=== PATIENT | female | born 1930 | race Caucasian/White ===

== ENCOUNTER 2016-04-17 13:40 | Inpatient (IN) | payer OTHER, MEDICARE ==
[~2016-04-17] VITALS: Ht 160 cm; Wt 63.5 kg
[~2016-04-17 13:40] MED LIST: ACETAMINOPHEN500 M4 PO; BISACODYL10 M1 RC; DONEPEZIL HCL10 M1 PO; ESCITALOPRAM OX20 MG PO; LEVOTHYROXINE75 MCG PO; MILK OF MA400 MG/52 PO; MULTI-DAY VITA1 EACH PO; PRILOSEC OTC20 M1 PO; PROCHLORPERAZIN25 M1 PR; QUETIAPINE FUMA25 M1 PO; TRAZODONE HCL50 M1 PO
--- NOTE | 2016-04-17 13:45 | NUR ---
AG FROM [facility] FOR VOMITING AND ABD PAIN. PT HAS BEEN REFUSING CARE, FOOD, MEDS X1 DAY. UPON ARRIVAL PT C/O GENERALIZED ABDOMINAL PAIN AND NAUSEA. BP 160/100 MANUALLY
--- NOTE | 2016-04-17 13:55 | ED GENERAL ADULT ---
History of Present Illness General Chief Complaint: General Adult Stated Complaint: BIBA FROM SNF FOR N/V,REFUSING MEDS,RESISTING CARE Source: patient, old records, EMS, [facility]10 Exam Limitations: no limitations Vital Signs & Intake/Output Vital Signs & Intake/Output Vital Signs Date Time Temp Pulse Resp B/P Pulse O2 O2 Flow FiO2 Ox Delivery Rate 04/20 0842 98.4 80 20 136/80 94 Room Air 04/19 1642 97.1 80 20 140/80 92 Room Air ED Intake and Output 04/20 0000 04/19 1200 Intake Total 300 Output Total Balance 300 Intake, Oral 300 Number 1 Bowel Movements Allergies Coded Allergies: NO KNOWN ALLERGIES (09/12/15) Reconcile Medications Acetaminophen 500 MG TABLET 2 TAB PO Q12H OA PAIN (Reported) Bisacodyl 10 MG SUPP.RECT 1 SUP RC DAILY PRN CONSTIPATION (Reported) Donepezil HCl 10 MG TABLET 1 TAB PO QPM MEMORY (Reported) Escitalopram Oxalate 20 MG TABLET 1 TAB PO DAILY MENTAL HEALTH (Reported) Levothyroxine Sodium 75 MCG TABLET 1 TAB PO DAILY AC THYROID (Reported) Magnesium Hydroxide (Milk Of Magnesia) 400 MG/5 ML ORAL.SUSP 30 ML PO DAILY PRN CONSTIPATION (Reported) Multivitamin (Multi-Day Vitamins) 1 EACH TABLET 1 TAB PO DAILY SUPPLEMENT ( Reported) Omeprazole Magnesium (Prilosec Otc) 20 MG TABLET.DR 1 TAB PO DAILY GI ( Reported) Quetiapine Fumarate 25 MG TABLET 1 TAB PO 4 TIMES/DAY MENTAL HEALTH (Reported ) Trazodone HCl 50 MG TABLET 75 MG PO QHS INSOMNIA (Reported) Trazodone HCl 50 MG TABLET 0.5 TAB PO BID UNKNOWN (Reported) Triage Nurses Notes Reviewed? yes Onset: Gradual Duration: day(s): (1) Timing: unknown Injury Environment: home Severity: moderate No Modifying Factors: none HPI: Patient is an 85-year-old female presenting to the emergency department with chief complaint of nausea and vomiting that started last night progressively getting worse. She reports she is unable to keep anything down today. She also reports diffuse abdominal pain. Unknown if there are any sick contacts. She does live in a [facility]. Denies any diarrhea. Denies reseeding anything at the ch[facility] help with symptoms. Per EMS she refused care at the ch[facility]. (GABRIEL ROBLEDO,SOL) Past History Travel History Traveled to [place] past 21 day No Medical History Any Pertinent Medical History? 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 No (SOL GARIBAY) Review of Systems Review of Systems Constitutional: Reports: malaise. Comments Review of systems: See HPI, All other systems negative. Constitutional, no chills fever or weight loss HEENT: No visual changes no sore throat no congestion Cardiovascular: No chest pain ,palpitation , orthopnea or ankle swelling Skin, no jaundice no rashes Respiratory: No dyspnea cough sputum or hemoptysis GI: No diarrhea : No dysuria No hematuria Muscle skeletal: no back pain, no neck pain, Neurologic: No numbness no increased confusion Psych: No stress anxiety Immunology: No splenectomy or history of AIDS (SOL GARIBAY) Physical Exam Physical Exam General Appearance: no apparent distress, alert, awake, obese Comments: Well-developed well-nourished person in no acute distress HEENT: Pupils equally round and reactive to light and accommodation. Nose is atraumatic. External auditory canal and Tympanic membranes clear. Pharynx normal. No swelling or edema. Slightly dry oral mucosa. Neck: Supple, no lymphadenopathy Back: Nontender, no CVA tenderness. Cardiovascular: Regular rate and rhythms no murmurs rubs or gallops, normal JVP Respiratory: Chest nontender. No respiratory distress.breath sounds clear to auscultation bilaterally Abdomen: Soft, obese, diffuse tenderness with guarding, nondistended, no appreciable organomegaly. Normal bowel sounds. No ascites. Palpable ventral hernia . Extremity: No edema, no calf tenderness to palpation, normal and equal pulses. Neuro: Alert oriented x3 Skin: No appreciable rash on exposed skin, skin is warm and dry. Psych: Mood and affect is normal, memory and judgment is normal. Core Measures ACS in differential dx? Yes CVA/TIA Diagnosis: No Severe Sepsis Present: No Septic Shock Present: No (SOL GARIBAY) Progress Differential Diagnoses I considered the following diagnoses in my evaluation of the patient: Gastritis , ACS, SBO, pancreatitis, dehydration, electrolyte abnormality, viral syndrome cholecystitis, choledocholithiasis, cholangitis Plan of Care: Orders Procedure Date/time Status Regular Diet 04/20 B Active CBC WITHOUT DIFFERENTIAL 04/20 599 Complete BASIC ELECTROLYTES PLUS BUN&CR 04/20 06 Complete Clear Liquid Diet 04/19 L Complete Current Medications Sig/Alonzo Start time Last Medication Dose Stop Time Status Admin Omeprazole 40 MG DAILY AC 04/20 0700 AC (Prilosec) Amoxicillin/ 500 MG Q12 04/190 AC Clavulanate Potassium (Augmentin) Heparin Sodium 5,000 UNIT Q8 04/17 220 AC (Porcine) Ondansetron HCl 4 MG Q6P PRN 04/17 173 AC (Zofran) Trazodone HCl 50 MG AT BEDTIME NEED.. 04/17 173 AC (Desyrel) Laboratory Tests 04/20/16 0854: Anion Gap 10, Estimated GFR 33 L, BUN/Creatinine Ratio 19.3, CBC w Diff NO MAN DIFF REQ, RBC 3.61 L, MCV 89.3, MCH 29.5, RDW 15.1 H, MPV 8.3, Gran % 77.1 H, Lymphocytes % 15.4 L, Monocytes % 7.2, Eosinophils % 0.1, Basophils % 0.2, Absolute Granulocytes 8.2 H, Absolute Lymphocytes 1.6, Absolute Monocytes 0.8 H, Absolute Eosinophils 0, Absolute Basophils 0, PUBS MCHC 33.0 Diagnostic Imaging: Viewed by Me: CT Scan. Discussed w/RAD: CT Scan. Radiology Impression: PATIENT: BRIEN MATTA PRESENT AGE: 85 PATIENT ACCOUNT NO: [id number] : 31 LOCATION: [facility] ORDERING PHYSICIAN: SOL ROBLEDO SERVICE DATE: 04/17/16 EXAM TYPE: CAT - CT ABD & PELVIS W/O IV CONTRAS EXAMINATION: CT ABDOMEN AND PELVIS WITHOUT CONTRAST CLINICAL INFORMATION: Nausea and vomiting. Abdominal pain. COMPARISON: None. TECHNIQUE: Multidetector volumetric imaging was performed from the superior aspect of the liver through the pubic symphysis. Sagittal and coronal reformatted images were obtained on the technologist's workstation. No oral contrast given. No intravenous contrast administered. DLP: 492.42 mGy-cm FINDINGS: LUNG BASES: The visualized lung bases are unremarkable. Vascular wall calcifications of aorta and coronary arteries. LIVER, GALLBLADDER, AND BILIARY TREE: The liver is normal in size, shape, and attenuation. No focal hepatic lesion or biliary ductal dilatation is present. The gallbladder is distended. There is edema around the gallbladder in the right upper quadrant. This is concerning for an acute cholecystitis. There is a gallstone in the neck of the gallbladder measuring 1.5 cm which is calcified. The extrahepatic CBD at the sharan hepatis is dilated to a diameter of 1.4 cm but tapers to the ampulla with no calcified stone in the bile duct. PANCREAS: Unremarkable. SPLEEN: Unremarkable. ADRENAL GLANDS: Unremarkable. KIDNEYS AND URETERS: In the superior pole of left kidney is a hyperdense 2 cm nodule, Hounsfield units 75. There is a low attenuating cortical cyst at the anterior cortex at the midpole of left kidney measuring 1.6 cm, Hounsfield density measurement of 19. Pedunculated 3 mm hyperdense lesion at the lower pole of left kidney coronal image 82. A 1.7 cm hyperdense cyst in the cortex of the mid lower pole of the right kidney. No renal or ureteral calculus. No hydronephrosis. BLADDER: Unremarkable. ABDOMINAL WALL/GASTROINTESTINAL TRACT: There is a ventral wall hernia. Defect in the abdominal wall musculature to left of the umbilicus. Defect measures about 3 cm transverse and superior inferior. There is nonobstructive large bowel loops from the transverse colon herniated through the defect. No obstruction of the bowel loops and no bowel wall thickening or edema. Moderate volume of stool throughout the colon. There is marked diverticulosis of the sigmoid colon with no evidence of diverticulitis. Scattered diverticula through the remainder of the colon. The appendix is normal. The small bowel loops are normal. LYMPH NODES: Normal. VASCULAR: Fusiform aneurysm of the distal aorta proximal to the bifurcation. Transverse dimension of 3.2 cm. There are vascular wall calcifications of the aorta and of the major branch vessels of the aorta. PELVIC VISCERA: Uterus is absent. No adnexal abnormality. OSSEOUS STRUCTURES: Multilevel degenerative change of the spine with disc height narrowing and endplate spurs and facet joint arthrosis. There is mild depression of the superior endplate of L4, L3, L2 and T11 vertebrae. IMPRESSION: 1. Cholelithiasis. Edema around the gallbladder. Findings suggesting acute cholecystitis. Dilated proximal CBD without calcified stone in the bile ducts. 2. Ventral wall hernia containing nonobstructed loop of transverse colon. 3. Diverticulosis of the sigmoid without diverticulitis. No bowel obstruction. No acute change of the bowel. 4. 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 DICTATED BY: NITISH GARCIA MD DATE/TIME DICTATED: 04/17/161525 FRONT DESK ASSOCIATE:GERSON DATE/TIME TRANSCRIBED:04/17/161525 CONFIDENTIAL, DO NOT COPY WITHOUT APPROPRIATE AUTHORIZATION. <Electronically signed in Other Vendor System> SIGNED BY: NITISH GARCIA MD 04/17/16 6436 CXR Impression: PATIENT: BRIEN MATTA PRESENT AGE: 85 PATIENT ACCOUNT NO: [id number] : 31 LOCATION: [facility] ORDERING PHYSICIAN: SOL ROBLEDO SERVICE DATE: 04/17/16 EXAM TYPE: RAD - XRY- PORTABLE CHEST XRAY EXAMINATION: XR PORTABLE CHEST CLINICAL INFORMATION: Cough, vomiting, question aspiration COMPARISON: 02/23/2016 TECHNIQUE: Portable AP view of the chest was obtained. FINDINGS: The patient is rotated accentuating the cardiomediastinal silhouette. There is patchy opacification in the retrocardiac left lower lobe and blunting of the left costophrenic angle which appears slightly worsened in the interval since the prior study. The right lung appears clear. No pneumothorax. The spine is not ideally assessed. The bones appear demineralized without convincing acute abnormality. IMPRESSION: Patchy retrocardiac left lower lobe opacity with a small left pleural effusion, which appears slightly worsened in the interval since the prior study accounting for differences in technique and position. DICTATED BY: ANGIE BEST MD DATE/TIME DICTATED:04/17/161550 FRONT DESK ASSOCIATE:GERSON DATE/TIME TRANSCRIBED:1550 CONFIDENTIAL, DO NOT COPY WITHOUT APPROPRIATE AUTHORIZATION. < Electronically signed in Other Vendor System> SIGNED BY: ANGIE BEST MD 04/17/161555 Initial ED EKG: SINUS RHYTHM AT 96 BPM, RIGHT BUNDLE BRANCH BLOCK, LEFT VENTRICULAR HYPERTROPHY Prior EKG: unchanged Comments: On arrival patient actively dry heaving. Given IV Zofran, IV fluids. Patient is afebrile arrival. Reports from W 10 show that she's been nauseous and vomiting for the past day with decreased by mouth intake. She does have a large ventral hernia on exam and diffuse tenderness with guarding. We will assess a CT of the abdomen, CBC, CMP. 04/17/2016 4:35:13 PM patient informed of all lab work results and imaging study results. Suggestive of acute cholecystitis. Patient medicated with IV Unasyn as she does have a dilation of the common bile duct in a stone in the bile duct. Spoke with Sean Rhodes MD, he will likely admit the patient for cholecystitis. The surgical PA will come down and evaluate the patient. Patient resting comfortably at this time. No elevation in LFTs or bilirubin. Patient is still afebrile. Prophylactically treating with Unasyn. Discussed with Kristy Bashir MD and she agrees with plan. (SOL GARIBAY) Departure Departure Time of Disposition: 1731 Disposition: STILL A PATIENT Condition: Stable Clinical Impression Primary Impression: Cholecystitis Secondary Impressions: Leukocytosis Qualifiers: Leukocytosis type: unspecified Qualified Code: D72.829 - Elevated white blood cell count, unspecified Referrals: Yumiko DOLAN MD (PCP/Family) Departure Forms: Customer Survey General Discharge Information Admission Note Spoke With: NORTH MUELLER,SEAN Montoya Documentation of Exam: Documentation of any treatments & extenuating circumstances including Concerns Regarding Discharge (functional status, medication knowledge or non-compliance, living conditions, etc.) that warrant an admission rather than observation: Nothing by mouth status, IV hydration, IV pain management, patient may require removal of gallbladder, TREND LABS. (SOL GARIBAY) PA/BREAD OVEN OPERATOR Co-Sign Statement Statement: ED Attending supervision documentation- [X] I saw and evaluated the patient. I have also reviewed all the pertinent lab results and diagnostic results. I agree with the findings and the plan of care as documented in the PA's/BREAD OVEN OPERATOR's documentation. [X] I have reviewed the ED Record and agree with the PA's/BREAD OVEN OPERATOR's documentation. [] Additions or exceptions (if any) to the PAs/BREAD OVEN OPERATOR's note and plan are summarized below: [] (MICAELA MUELLER,KRISTY) Critical Care Note Critical Care Note Critical Care Time: 30-74 min (SOL GARIBAY) Departure Time of Disposition: 1731 Disposition: STILL A PATIENT Condition: Stable Clinical Impression Primary Impression: Cholecystitis Secondary Impressions: Leukocytosis Qualifiers: Leukocytosis type: unspecified Qualified Code: D72.829 - Elevated white blood cell count, unspecified Referrals: Yumiko DOLAN MD (PCP/Family) Departure Forms: Customer Survey General Discharge Information Admission Note Spoke With: NORTH MUELLER,SEAN N. Documentation of Exam: Documentation of any treatments & extenuating circumstances including Concerns Regarding Discharge (functional status, medication knowledge or non-compliance, living conditions, etc.) that warrant an admission rather than observation: Nothing by mouth status, IV hydration, IV pain management, patient may require removal of gallbladder, TREND LABS. Critical Care Note Critical Care Note Critical Care Time: 30-74 min
[2016-04-17 14:18] LABS: ABSOLUTE BASOPHIL COUNT 0.1 /CUMM (0.0-0.2); ABSOLUTE EOSINOPHIL COUNT 0 /CUMM (0.0-0.7); ABSOLUTE GRANULOCYTE CT 16.5 /CUMM (1.4-6.5); ABSOLUTE LYMPH COUNT 1.9 /CUMM (1.2-3.4); ABSOLUTE MONOCYTE COUNT 0.9 /CUMM (0.10-0.60); BASOPHIL % 0.3 % (0.0-2.0); EOSINOPHIL % 0 % (0-5); GRANULOCYTE % 84.9 % (42.2-75.2); HEMATOCRIT 36.6 % (37-47); MEAN CORPUSCULAR HGB 29.1 PG (27.0-31.0); MEAN CORPUSCULAR HGB CONC 32.5 G/DL (33.0-37.0); MEAN CORPUSCULAR VOLUME 89.5 FL (81.0-99.0); MEAN PLATELET VOLUME 8.1 FL (7.4-10.4); PLATELET COUNT 267 /CUMM (130-400); RBC DISTRIBUTION WIDTH 15.9 % (11.5-14.5); RED BLOOD CELL CT 4.09 /CUMM (4.20-5.40); WHITE BLOOD CELL COUNT 19.4 /CUMM (4.8-10.8)
--- NOTE | 2016-04-17 15:20 | NUR ---
PT LEFT AND BACK FROM CAT SCAN
--- NOTE | 2016-04-17 15:35 | NUR ---
PCXR IN PROCESS
--- NOTE | 2016-04-17 15:49 | CT SCAN REPORT ---
EXAMINATION: CT ABDOMEN AND PELVIS WITHOUT CONTRAST CLINICAL INFORMATION: Nausea and vomiting. Abdominal pain. COMPARISON: None. TECHNIQUE: Multidetector volumetric imaging was performed from the superior aspect of the liver through the pubic symphysis. Sagittal and coronal reformatted images were obtained on the technologist's workstation. No oral contrast given. No intravenous contrast administered. DLP: 492.42 mGy-cm FINDINGS: LUNG BASES: The visualized lung bases are unremarkable. Vascular wall calcifications of aorta and coronary arteries. LIVER, GALLBLADDER, AND BILIARY TREE: The liver is normal in size, shape, and attenuation. No focal hepatic lesion or biliary ductal dilatation is present. The gallbladder is distended. There is edema around the gallbladder in the right upper quadrant. This is concerning for an acute cholecystitis. There is a gallstone in the neck of the gallbladder measuring 1.5 cm which is calcified. The extrahepatic CBD at the sharan hepatis is dilated to a diameter of 1.4 cm but tapers to the ampulla with no calcified stone in the bile duct. PANCREAS: Unremarkable. SPLEEN: Unremarkable. ADRENAL GLANDS: Unremarkable. KIDNEYS AND URETERS: In the superior pole of left kidney is a hyperdense 2 cm nodule, Hounsfield units 75. There is a low attenuating cortical cyst at the anterior cortex at the midpole of left kidney measuring 1.6 cm, Hounsfield density measurement of 19. Pedunculated 3 mm hyperdense lesion at the lower pole of left kidney coronal image 82. A 1.7 cm hyperdense cyst in the cortex of the mid lower pole of the right kidney. No renal or ureteral calculus. No hydronephrosis. BLADDER: Unremarkable. ABDOMINAL WALL/GASTROINTESTINAL TRACT: There is a ventral wall hernia. Defect in the abdominal wall musculature to left of the umbilicus. Defect measures about 3 cm transverse and superior inferior. There is nonobstructive large bowel loops from the transverse colon herniated through the defect. No obstruction of the bowel loops and no bowel wall thickening or edema. Moderate volume of stool throughout the colon. There is marked diverticulosis of the sigmoid colon with no evidence of diverticulitis. Scattered diverticula through the remainder of the colon. The appendix is normal. The small bowel loops are normal. LYMPH NODES: Normal. VASCULAR: Fusiform aneurysm of the distal aorta proximal to the bifurcation. Transverse dimension of 3.2 cm. There are vascular wall calcifications of the aorta and of the major branch vessels of the aorta. PELVIC VISCERA: Uterus is absent. No adnexal abnormality. OSSEOUS STRUCTURES: Multilevel degenerative change of the spine with disc height narrowing and endplate spurs and facet joint arthrosis. There is mild depression of the superior endplate of L4, L3, L2 and T11 vertebrae. IMPRESSION: 1. Cholelithiasis. Edema around the gallbladder. Findings suggesting acute cholecystitis. Dilated proximal CBD without calcified stone in the bile ducts. 2. Ventral wall hernia containing nonobstructed loop of transverse colon. 3. Diverticulosis of the sigmoid without diverticulitis. No bowel obstruction. No acute change of the bowel. 4. 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
--- NOTE | 2016-04-17 15:56 | RADIOLOGY REPORT ---
EXAMINATION: XR PORTABLE CHEST CLINICAL INFORMATION: Cough, vomiting, question aspiration COMPARISON: 02/23/2016 TECHNIQUE: Portable AP view of the chest was obtained. FINDINGS: The patient is rotated accentuating the cardiomediastinal silhouette. There is patchy opacification in the retrocardiac left lower lobe and blunting of the left costophrenic angle which appears slightly worsened in the interval since the prior study. The right lung appears clear. No pneumothorax. The spine is not ideally assessed. The bones appear demineralized without convincing acute abnormality. IMPRESSION: Patchy retrocardiac left lower lobe opacity with a small left pleural effusion, which appears slightly worsened in the interval since the prior study accounting for differences in technique and position.
--- NOTE | 2016-04-17 17:40 | Cons- Medical ---
EDITHAVNILAURA 04/17/16 1739: General Information and HPI Consulting Request Date of Consult: 04/17/16 Requested By: Dr. Rhodes Reason for Consult: Management of possible Pneumonia Source of Information: patient, old records History of Present Illness: This is an 85 years old lady with past medical history of hypertension not on height but antihypertensive medications, hypothyroidism, GERD, ventral hernia, AAA, advanced dementia who is a resident of group home facility and presenting with 3 days history of nausea and vomiting, consisting predominantly of recently eaten foods. The patient denies any abdominal pain associated with nausea and vomiting, she denies any fevers or chills. Reported from the group home facility that the patient refused investigation and also care to address her nausea and vomiting. She has been having no bowel movement for the past 3 days initially was found to have hypoactive bowels but today the patient bowel sounds were normal. This patient is none mobile at baseline requiring a wheelchair and a Dottie lift. Hospital course adjusted a few days ago to address her behavioral issues especially refusing care. The patient decision maker for health concern is her sister telephone number [phone]. Patient denies any chest pain, palpitation, shortness of breath, dizziness, blurring of vision or lightheadedness. She denies any dysuria or change in urine frequency. Allergies/Medications Allergies: Coded Allergies: NO KNOWN ALLERGIES (09/12/15) Home Med List: Acetaminophen 500 MG TABLET 2 TAB PO Q12H OA PAIN (Reported) Bisacodyl 10 MG SUPP.RECT 1 SUP RC DAILY PRN CONSTIPATION (Reported) Donepezil HCl 10 MG TABLET 1 TAB PO QPM MEMORY (Reported) Escitalopram Oxalate 20 MG TABLET 1 TAB PO DAILY MENTAL HEALTH (Reported) Levothyroxine Sodium 75 MCG TABLET 1 TAB PO DAILY AC THYROID (Reported) Magnesium Hydroxide (Milk Of Magnesia) 400 MG/5 ML ORAL.SUSP 30 ML PO DAILY PRN CONSTIPATION (Reported) Multivitamin (Multi-Day Vitamins) 1 EACH TABLET 1 TAB PO DAILY SUPPLEMENT ( Reported) Omeprazole Magnesium (Prilosec Otc) 20 MG TABLET.DR 1 TAB PO DAILY GI ( Reported) Quetiapine Fumarate 25 MG TABLET 1 TAB PO 4 TIMES/DAY MENTAL HEALTH (Reported ) Trazodone HCl 50 MG TABLET 75 MG PO QHS INSOMNIA (Reported) Trazodone HCl 50 MG TABLET 0.5 TAB PO BID UNKNOWN (Reported) Current Medications: Current Medications Sig/Alonzo Start time Last Medication Dose Route Stop Time Status Admin Acetaminophen 1,000 MG Q6P PRN 04/17 1730 AC N/A 1 UNIT IV Ampicillin Sodium/ 3,000 MG Q6 04/17 2200 UNVr Sulbactam Sodium IV Sodium Chloride 100 ML Ampicillin Sodium/ 0 .STK-MED ONE 04/17 1627 DC Sulbactam Sodium .ROUTE Ampicillin Sodium/ 3,000 MG ONCE ONE 04/17 1600 DC 04/17 Sulbactam Sodium IV 04/17 1629 1637 Sodium Chloride 100 ML Dextrose/Sodium 1,000 ML Q10H 04/17 1730 AC Chloride IV Escitalopram Oxalate 20 MG DAILY 04/18 1000 UNVr PO Heparin Sodium 5,000 UNIT Q8 04/17 2200 UNVr (Porcine) SC Levothyroxine Sodium 0.075 MG DAILY AC 04/18 0700 UNVr PO Ondansetron HCl 4 MG Q6P PRN 04/17 1730 AC IV Ondansetron HCl 0 .STK-MED ONE 04/17 1401 DC .ROUTE Ondansetron HCl 4 MG ONCE ONE 04/17 1400 DC 04/17 IV 04/17 1401 1402 Pantoprazole Sodium 40 MG DAILY 04/18 1000 AC IV Quetiapine Fumarate 25 MG FOUR TIMES A DAY 04/17 1800 UNVr PO Sodium Chloride 1,000 ML BOLUS ONE 04/17 1400 DC 04/17 IV 04/17 1559 1412 Trazodone HCl 25 MG BID 04/17 2200 UNVr PO Trazodone HCl 50 MG AT BEDTIME NEED.. 04/17 1730 AC PO Review of Systems Review of Systems Constitutional: Denies: chills, fever. EENTM: Denies: blurred vision, double vision. Cardiovascular: Denies: chest pain, palpitations. Respiratory: Denies: cough, short of breath. GI: Reports: constipation, nausea, vomiting. Denies: abdominal pain. 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 Musculoskeletal: Denies: no symptoms. 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 ETOH Use: denies use Illicit Drug Use: denies illicit drug use Functional Ability ADLs Needs Assist: dressing, eating, toileting, bathing. Exam & Diagnostic Data Last 24 Hrs of Vital Signs/I&O Vital Signs Date Time Temp Pulse Resp B/P Pulse O2 O2 Flow FiO2 Ox Delivery Rate 04/17 1846 98.8 92 16 177/85 93 Room Air 04/17 1536 92 16 154/86 93 Room Air 04/17 1410 93 Room Air 04/17 1345 98.7 95 16 160/100 93 Room Air Intake & Output 04/17 1600 04/17 0800 04/17 0000 Intake Total 1000 Output Total 150 Balance 850 Intake, IV 1000 Output, 150 Emesis Patient 180 lb Weight Physical Exam General Appearance: no apparent distress, alert, awake, patient is not oriented to time place or person Head: atraumatic, normal appearance Eyes: Bilateral: normal appearance. Ears, Nose, Throat: dry mucous membranes Neck: normal inspection Respiratory: bronchial breath sounds bilaterally more in the bases Cardiovascular: regular rate/rhythm Peripheral Pulses: 2+ radial (R), 2+ radial (L) Gastrointestinal: normal bowel sounds, soft, non-tender Back: normal inspection Extremities: normal inspection, normal capillary refill, no edema Neurologic/Psych: awake, alert (not oriented to time place orP) Cranial Nerves: normal speech Last 24 Hrs of Labs/Ramon: Laboratory Tests 04/17/16 1702: Lactic Acid Cancelled 04/17/16 1402: Lactic Acid 1.1 04/17/16 1402: Anion Gap 14, Estimated GFR 33 L, BUN/Creatinine Ratio 21.3, Glucose 133 H, Calcium 9.0, Total Bilirubin 0.9, AST 20, ALT 28, Alkaline Phosphatase 111, Total Protein 7.2, Albumin 3.4 L, Globulin 3.8, Albumin/Globulin Ratio 0.9 L, Amylase < 30 L, Lipase 37, CBC w Diff MAN DIFF ORDERED, RBC 4.09 L, MCV 89.5, MCH 29.1, RDW 15.9 H, MPV 8.1, Gran % 84.9 H, Lymphocytes % 10.0 L, Monocytes % 4.8, Eosinophils % 0, Basophils % 0.3, Absolute Granulocytes 16.5 H, Absolute Lymphocytes 1.9, Absolute Monocytes 0.9 H, Absolute Eosinophils 0, Absolute Basophils 0.1, Platelet Estimate ADEQUATE, Anisocytosis 1+, PUBS MCHC 32.5 L 04/17/16 1400: PT 11.9, INR 1.13, APTT 38 H Diagnostic Data EKG Results Normal sinus rhythm, regular, right bundle branch block no ST-T wave changes CXR Results Patchy retrocardiac left lower lobe opacity with small left pleural effusion with slight worsening. Other Results Abdominal pelvis CT: 1. Cholelithiasis. Edema around the gallbladder. Findings suggesting acute cholecystitis. Dilated proximal CBD without calcified stone in the bile ducts. 2. Ventral wall hernia containing nonobstructed loop of transverse colon. 3. Diverticulosis of the sigmoid without diverticulitis. No bowel obstruction. No acute change of the bowel. 4. 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 Assessment/Plan Assessment/Plan This is an 85 years old lady with past medical history of hypertension not on antihypertensive medications, advanced dementia, GERD, hypothyroidism who was brought in from group home facility presenting with nausea and vomiting for the past 3 days. Patient has been refusing care at SNF facility. She was found to have leukocytosis of 19,400 with a left shifted granulocyte about 85%, has increased BUN of 32 and creatinine of 1.5 with GFR of 33 which is secured D stage IIIB, no lactic acidosis with imaging evidence of patchy retrocardiac left lower lobe opacity and CT scan evidence of acute cholecystitis. Problem list Aspiration pneumonia Cholecystitis Advanced dementia Hypothyroidism GERD This patient has right bundle branch block on the EKG but this is unchanged from previous EKG. She has no recorded history of coronary artery disease, no heart failure no history of CVA she is not using insulin and her creatinine is less than 2 from [facility] she has no risk factor and high risk of cardiac event during the surgery is 0.5%. You have a repeat EKG tomorrow morning and from our standpoint can continue with surgery. Post surgical team will be nothing by mouth from midnight but can take medication with sips of water. The patient on normal saline at 75 mL per hr while nothing by mouth. Aspiration pneumonia: The patient has leukocytosis with retrocardiac opacity suggestive of pneumonia. Start the patient on Unasyn 3000 mg every 6, continue to monitor for signs of infection, will need a repeat chest x-ray to assess progression of the opacities. Advanced dementia: Please continue all home medication, this patient has risk of developing delirium due to her advanced dementia and now presenting with acute sickness. The patient is on trazodone 50 mg twice a day and trazodone 75 mg at bedtime, quetiapine fumarate 25 mg 4 times a day Hypothyroidism: Continue with levothyroxine 75 g Depression: Continue with escitalopram 20 mg Problem List: 1. Aspiration pneumonia 2. Leukocytosis 3. Cholecystitis 4. Dementia Copies To: NORTH MUELLER,SEAN Olsen. Consult Acknowledgment - Thank you for your consult request. SACHA MAC 04/18/16 0057: Assessment/Plan Consult Acknowledgment - Thank you for your consult request. Attending MD Review Statement Attending Statement Attending MD Statement: examined this patient, discuss w/resident/PA/WARP TENSION TESTER, agreed w/resident/PA/WARP TENSION TESTER, reviewed EMR data (avail), reviewed images, amended to note Attending Assessment/Plan: CC : Nausea vomiting, refusing treatment in assisted living PMH: Dementia, hypothyroidism, HTN Patient presents with 3 days history of nausea and vomiting, consisting predominantly of recently eaten foods. Patient is not reliable historian as she is pleasantly demented. She denies any abdominal pain, fevers or chills, chest pain, cough but is a is received repeat she. senior living facility reported that the patient refused investigation and also care to address her nausea and vomiting and no bowel movements since 3 days. The patient decision maker for health concern is her sister telephone number [phone]. On investigations in ER, there is suspicion of acute cholecystitis, being admitted to surgical service. We wear asked consult for medical comanagement for suspected pneumonia. Vitals: Afebrile, HR, RR, BP, saturation in acceptable range. On examination pleasantly demented, inappropriate responses, not oriented, follows instructions , refuses examination. CVS: S1-S2 RRR. RS: Clear to auscultate bilaterally, no adventitious sounds. Abdomen soft, nontender bowel sounds decreased. No pedal edema, no focal neurological deficits Labs: WBC 19.4 with neutrophils 84%, hemoglobin 11.9, bicarbonate 21, anion gap 14, BUN 32, creatinine 1.5, glucose 133, lactate 1.1. CXR: Patchy retrocardiac left lower lobe opacity with a small left pleural effusion, which appears slightly worsened in the interval since the prior study accounting for differences in technique and position. CT abdomen and pelvis without IV contrast: Cholelithiasis. Edema around the gallbladder. Findings suggesting acute cholecystitis. Dilated proximal CBD without calcified stone in the bile ducts. Ventral wall hernia containing nonobstructed loop of transverse colon. Diverticulosis of the sigmoid without diverticulitis. No bowel obstruction. No acute change of the bowel. 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 A and P Thanks for involving in care. Patient may have aspirated with recurrent vomitings, chest x-ray shows patchy retrocardiac opacity. Patient is not a reliable historian for chest pain or cough. Has significant leukocytosis but afebrile. - Aspiration pneumonia versus pneumonitis: continue Unasyn for now, repeat chest x-ray in 2 days for developing pneumonia versus resolution of infiltrates, to decide antibiotic course. Nothing by mouth. Swallow evaluation if surgery is not scheduled. - dementia: Patient not oriented pleasantly confused. Watch for delirium, related to hospital stay as well as current sickness. When necessary antipsychotics if required, check EKG for QTc interval - No detailed history is available, EKG shows right bundle branch block difficult to evaluate old Q waves. But overall patient does not appear in heart failure or volume overload, does not have any history of diabetes. Should be low risk for any surgery.
[2016-04-17 17:53] LABS: PT 11.9 SEC (9.4-12.5); PTT 38 SEC (25-37)
--- NOTE | 2016-04-17 17:53 | History & Physical Pre-Op ---
General Information and HPI MD Statement: I have seen and personally examined BRIEN MATTA and documented this H&P. The patient is a 85 year old F who presented with a patient stated chief complaint of [ABDOMINAL PAIN]. Source of Information: patient, old records Exam Limitations: dementia History of Present Illness: This 85 year old resident of [facility] was BIBA due to her nausea/vomiting and refusal to eat prior to coming in. She apparentely had been complaining of abdominal pain, but denies any problem when seen in the ED. "I feel fine". "Let me go home". Denies any symptoms. Doesn't recall reporting abdominal pain or having nausea/vomiting prior to presenting to the ED. When asked who her primary care doctor is, she replied "I don't have one" even though she is well known to . I called her sister for more information/history, who was unavailable by phone. Allergies/Medications Allergies: Coded Allergies: NO KNOWN ALLERGIES (09/12/15) Home Med list Acetaminophen 500 MG TABLET 2 TAB PO Q12H OA PAIN (Reported) Bisacodyl 10 MG SUPP.RECT 1 SUP RC DAILY PRN CONSTIPATION (Reported) Donepezil HCl 10 MG TABLET 1 TAB PO QPM MEMORY (Reported) Escitalopram Oxalate 20 MG TABLET 1 TAB PO DAILY MENTAL HEALTH (Reported) Levothyroxine Sodium 75 MCG TABLET 1 TAB PO DAILY AC THYROID (Reported) Magnesium Hydroxide (Milk Of Magnesia) 400 MG/5 ML ORAL.SUSP 30 ML PO DAILY PRN CONSTIPATION (Reported) Multivitamin (Multi-Day Vitamins) 1 EACH TABLET 1 TAB PO DAILY SUPPLEMENT ( Reported) Omeprazole Magnesium (Prilosec Otc) 20 MG TABLET.DR 1 TAB PO DAILY GI ( Reported) Quetiapine Fumarate 25 MG TABLET 1 TAB PO 4 TIMES/DAY MENTAL HEALTH (Reported ) Trazodone HCl 50 MG TABLET 75 MG PO QHS INSOMNIA (Reported) Trazodone HCl 50 MG TABLET 0.5 TAB PO BID UNKNOWN (Reported) Past History Medical History Neurological: dementia EENT: cataracts Cardiovascular: hypertension Respiratory: NONE Gastrointestinal: GERD, HERNIA INCONTINENCE Hepatic: NONE Renal: INCONTINENCE Musculoskeletal: osteoarthritis Psychiatric: anxiety Endocrine: hypothyroidism Blood Disorders: NONE Cancer(s): NONE 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 Long-Term Facility ETOH Use: denies use Illicit Drug Use: denies illicit drug use Review of Systems Review of Systems: denies Exam & Diagnostic Data Last 24 Hrs of Vital Signs/I&O Vital Signs Date Time Temp Pulse Resp B/P Pulse O2 O2 Flow FiO2 Ox Delivery Rate 04/17 1536 92 16 154/86 93 Room Air 04/17 1410 93 Room Air 04/17 1345 98.7 95 16 160/100 93 Room Air Intake & Output 04/17 1600 04/17 0800 04/17 0000 Intake Total 1000 Output Total 150 Balance 850 Intake, IV 1000 Output, 150 Emesis Patient 180 lb Weight Physical Exam: General - alert. demented. no acute distress. Skin - warm, dry, smooth. no rashes. no jaundice. Lungs - decreased breath sounds b/l, L>R Cardiac - s1s2. reg. Abdomen - nontender. midline incision appreciated. Extremities - warm bilaterally. calves soft and nontender. Last 24 Hrs of Labs/Ramon: Laboratory Tests 04/17/16 1702: Lactic Acid Cancelled 04/17/16 1402: Lactic Acid 1.1 04/17/16 1402: Anion Gap 14, Estimated GFR 33 L, BUN/Creatinine Ratio 21.3, Glucose 133 H, Calcium 9.0, Total Bilirubin 0.9, AST 20, ALT 28, Alkaline Phosphatase 111, Total Protein 7.2, Albumin 3.4 L, Globulin 3.8, Albumin/Globulin Ratio 0.9 L, Amylase < 30 L, Lipase 37, CBC w Diff MAN DIFF ORDERED, RBC 4.09 L, MCV 89.5, MCH 29.1, RDW 15.9 H, MPV 8.1, Gran % 84.9 H, Lymphocytes % 10.0 L, Monocytes % 4.8, Eosinophils % 0, Basophils % 0.3, Absolute Granulocytes 16.5 H, Absolute Lymphocytes 1.9, Absolute Monocytes 0.9 H, Absolute Eosinophils 0, Absolute Basophils 0.1, Platelet Estimate ADEQUATE, Anisocytosis 1+, PUBS MCHC 32.5 L 04/17/16 1400: PT Pending, INR Pending, APTT Pending Microbiology 04/17 1625 BLOOD: Blood Culture - RECD 04/17 161 BLOOD: Blood Culture - RECD Diagnostic Data CXR Results EXAMINATION: XR PORTABLE CHEST CLINICAL INFORMATION: Cough, vomiting, question aspiration COMPARISON: 02/23/2016 TECHNIQUE: Portable AP view of the chest was obtained. FINDINGS: The patient is rotated accentuating the cardiomediastinal silhouette. There is patchy opacification in the retrocardiac left lower lobe and blunting of the left costophrenic angle which appears slightly worsened in the interval since the prior study. The right lung appears clear. No pneumothorax. The spine is not ideally assessed. The bones appear demineralized without convincing acute abnormality. IMPRESSION: Patchy retrocardiac left lower lobe opacity with a small left pleural effusion, which appears slightly worsened in the interval since the prior study accounting for differences in technique and position. DICTATED BY: ANGIE BEST MD DATE/TIME DICTATED:04/17/161550 [employer]:GERSON DATE/TIME TRANSCRIBED:04/17/161550 Other Results EXAMINATION: CT ABDOMEN AND PELVIS WITHOUT CONTRAST CLINICAL INFORMATION: Nausea and vomiting. Abdominal pain. COMPARISON: None. TECHNIQUE: Multidetector volumetric imaging was performed from the superior aspect of the liver through the pubic symphysis. Sagittal and coronal reformatted images were obtained on the technologist's workstation. No oral contrast given. No intravenous contrast administered. DLP: 492.42 mGy-cm FINDINGS: LUNG BASES: The visualized lung bases are unremarkable. Vascular wall calcifications of aorta and coronary arteries. LIVER, GALLBLADDER, AND BILIARY TREE: The liver is normal in size, shape, and attenuation. No focal hepatic lesion or biliary ductal dilatation is present. The gallbladder is distended. There is edema around the gallbladder in the right upper quadrant. This is concerning for an acute cholecystitis. There is a gallstone in the neck of the gallbladder measuring 1.5 cm which is calcified. The extrahepatic CBD at the sharan hepatis is dilated to a diameter of 1.4 cm but tapers to the ampulla with no calcified stone in the bile duct. PANCREAS: Unremarkable. SPLEEN: Unremarkable. ADRENAL GLANDS: Unremarkable. KIDNEYS AND URETERS: In the superior pole of left kidney is a hyperdense 2 cm nodule, Hounsfield units 75. There is a low attenuating cortical cyst at the anterior cortex at the midpole of left kidney measuring 1.6 cm, Hounsfield density measurement of 19. Pedunculated 3 mm hyperdense lesion at the lower pole of left kidney coronal image 82. A 1.7 cm hyperdense cyst in the cortex of the mid lower pole of the right kidney. No renal or ureteral calculus. No hydronephrosis. BLADDER: Unremarkable. ABDOMINAL WALL/GASTROINTESTINAL TRACT: There is a ventral wall hernia. Defect in the abdominal wall musculature to left of the umbilicus. Defect measures about 3 cm transverse and superior inferior. There is nonobstructive large bowel loops from the transverse colon herniated through the defect. No obstruction of the bowel loops and no bowel wall thickening or edema. Moderate volume of stool throughout the colon. There is marked diverticulosis of the sigmoid colon with no evidence of diverticulitis. Scattered diverticula through the remainder of the colon. The appendix is normal. The small bowel loops are normal. LYMPH NODES: Normal. VASCULAR: Fusiform aneurysm of the distal aorta proximal to the bifurcation. Transverse dimension of 3.2 cm. There are vascular wall calcifications of the aorta and of the major branch vessels of the aorta. PELVIC VISCERA: Uterus is absent. No adnexal abnormality. OSSEOUS STRUCTURES: Multilevel degenerative change of the spine with disc height narrowing and endplate spurs and facet joint arthrosis. There is mild depression of the superior endplate of L4, L3, L2 and T11 vertebrae. IMPRESSION: 1. Cholelithiasis. Edema around the gallbladder. Findings suggesting acute cholecystitis. Dilated proximal CBD without calcified stone in the bile ducts. 2. Ventral wall hernia containing nonobstructed loop of transverse colon. 3. Diverticulosis of the sigmoid without diverticulitis. No bowel obstruction. No acute change of the bowel. 4. 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 DICTATED BY: NITISH GARCIA MD DATE/TIME DICTATED:04/17/161525 [employer]:[place] DATE/TIME TRANSCRIBED:04/17/161525 CONFIDENTIAL, DO NOT COPY WITHOUT APPROPRIATE AUTHORIZATION. Assessment/Plan Assessment/Plan: This 85 year old white female with hx dementia, hypothryoidism, gerd, htn, anxiety presents with abdominal pain, nausea/vomiting, and CT scan findings suggesting acute cholecystitis with cxr that shows possible aspiration pneumonia npo / ivf iv unasyn iv tylenol for pain as needed hep sc - dvt ppx home meds ordered aspiration precautions tried to call her sister, who was unavailable consult called to for co-management discussed above with As Ranked By This Provider Problem List: 1. Abdominal pain 2. Aspiration pneumonia
--- NOTE | 2016-04-17 17:54 | Admission Core Measures ---
Admission Lab Results I reviewed the following labs: Laboratory Tests 04/17 04/17 04/17 1702 1402 1402 Chemistry Sodium (137 - 145 mmol/L) 139 Potassium (3.5 - 5.1 mmol/L) 4.4 Chloride (98 - 107 mmol/L) 104 Carbon Dioxide (22 - 30 mmol/L) 21 L Anion Gap (5 - 16) 14 BUN (7 - 17 mg/dL) 32 H Creatinine (0.5 - 1.0 mg/dL) 1.5 H Estimated GFR (>60 ml/min) 33 L BUN/Creatinine Ratio (7 - 25 %) 21.3 Glucose (65 - 99 mg/dL) 133 H Lactic Acid (0.7 - 2.1 mmol/L) Cancelled 1.1 Calcium (8.4 - 10.2 mg/dL) 9.0 Total Bilirubin (0.2 - 1.3 mg/dL) 0.9 AST (14 - 36 U/L) 20 ALT (9 - 52 U/L) 28 Alkaline Phosphatase (<127 U/L) 111 Total Protein (6.3 - 8.2 g/dL) 7.2 Albumin (3.5 - 5.0 g/dL) 3.4 L Globulin (1.9 - 4.2 gm/dL) 3.8 Albumin/Globulin Ratio (1.1 - 2.2 %) 0.9 L Amylase (30 - 110 U/L) < 30 L Lipase (23 - 300 U/L) 37 Hematology CBC w Diff MAN DIFF ORDERED WBC (4.8 - 10.8 /CUMM) 19.4 H RBC (4.20 - 5.40 /CUMM) 4.09 L Hgb (12.0 - 16.0 G/DL) 11.9 L Hct (37 - 47 %) 36.6 L MCV (81.0 - 99.0 FL) 89.5 MCH (27.0 - 31.0 PG) 29.1 RDW (11.5 - 14.5 %) 15.9 H Plt Count (130 - 400 /CUMM) 267 MPV (7.4 - 10.4 FL) 8.1 Gran % (42.2 - 75.2 %) 84.9 H Lymphocytes % (20.5 - 51.1 %) 10.0 L Monocytes % (1.7 - 9.3 %) 4.8 Eosinophils % (0 - 5 %) 0 Basophils % (0.0 - 2.0 %) 0.3 Absolute Granulocytes (1.4 - 6.5 /CUMM) 16.5 H Absolute Lymphocytes (1.2 - 3.4 /CUMM) 1.9 Absolute Monocytes (0.10 - 0.60 /CUMM) 0.9 H Absolute Eosinophils (0.0 - 0.7 /CUMM) 0 Absolute Basophils (0.0 - 0.2 /CUMM) 0.1 Platelet Estimate (ADEQUATE) ADEQUATE Anisocytosis 1+ PUBS MCHC (33.0 - 37.0 G/DL) 32.5 L 04/17 1400 Coagulation PT Pending INR Pending APTT Pending Admission Meds I reviewed the following Meds: Current Medications Sig/Alonzo Start time Last Medication Dose Stop Time Status Admin Acetaminophen 1,000 MG Q6P PRN 04/17 1730 AC (Ofirmev) N/A 1 UNIT (No Carrier) Ampicillin Sodium/ 3,000 MG Q6 04/17 2200 UNVr Sulbactam Sodium (Unasyn) Sodium Chloride 100 ML (Normal Saline 0.9%) Dextrose/Sodium 1,000 ML Q10H 04/17 1730 AC Chloride (D5W-1/2 Normal Saline 1000ML) Escitalopram Oxalate 20 MG DAILY 04/18 1000 UNVr (Lexapro) Heparin Sodium 5,000 UNIT Q8 04/17 2200 UNVr (Porcine) Levothyroxine Sodium 0.075 MG DAILY AC 04/18 0700 UNVr (Synthroid) Ondansetron HCl 4 MG Q6P PRN 04/17 1730 AC (Zofran) Pantoprazole Sodium 40 MG DAILY 04/18 1000 AC (Protonix) Quetiapine Fumarate 25 MG FOUR TIMES A DAY 04/17 1800 UNVr (Seroquel) Trazodone HCl 25 MG BID 04/17 2200 UNVr (Desyrel) Trazodone HCl 50 MG AT BEDTIME NEED.. 04/17 1730 AC (Desyrel) Acute Coronary Syndrome Inclusion Criteria ACS Diagnosis No Inpatient Core Measures LDL Reminder: If No, please order W/I first 24hr of stay Congestive Heart Failure Inclusion Criteria CHF Diagnosis No Cerebrovascular accident Inclusion Criteria CVA/TIA Diagnosis No Inpatient Core Measures Bedside Swallow Eval Reminder: If BSE failed, place ST order Antithrombotic Reminder: Order Antithrombotic Medication by end of day 2 Antithrombotic Reminder: Document Reason Antithrombotic Not ordered by end of day 2 AFIB/Flutter Reminder: If Present, add to problem list AFIB/Flutter Reminder: Order Anticoag Medication for pts with AFIB/Flutter Atherosclerosis Reminder: If Present, add to problem list LDL Reminder: If No, please order W/I first 24hr of stay PT Order Reminder: If No, please order Venous thromboembolism Inpatient Core Measures VTE Risk Factors: Age > 40, Obesity VTE Prophylaxis Ordered Inpt Mech & Pharm No Mech VTE prophylaxis d/t No contraindications No VTE Pharm Prophylaxis d/t No contraindications Inclusion Criteria - Per Current guidelines, there needs to be overlap - treatment for the first 5 days of Warfarin therapy. - Parenteral Anticoagulation (IV or SC) needs to be - given along with Warfarin therapy. VTE Diagnosis No VTE Type NONE VTE Confirmed by (Test) NONE Problem List As ranked by this Provider includes Assessment & Plan 1. Aspiration pneumonia 2. Abdominal pain HOME MEDS Home Med List Acetaminophen 500 MG TABLET 2 TAB PO Q12H OA PAIN (Reported) Bisacodyl 10 MG SUPP.RECT 1 SUP RC DAILY PRN CONSTIPATION (Reported) Donepezil HCl 10 MG TABLET 1 TAB PO QPM MEMORY (Reported) Escitalopram Oxalate 20 MG TABLET 1 TAB PO DAILY MENTAL HEALTH (Reported) Levothyroxine Sodium 75 MCG TABLET 1 TAB PO DAILY AC THYROID (Reported) Magnesium Hydroxide (Milk Of Magnesia) 400 MG/5 ML ORAL.SUSP 30 ML PO DAILY PRN CONSTIPATION (Reported) Multivitamin (Multi-Day Vitamins) 1 EACH TABLET 1 TAB PO DAILY SUPPLEMENT ( Reported) Omeprazole Magnesium (Prilosec Otc) 20 MG TABLET.DR 1 TAB PO DAILY GI ( Reported) Quetiapine Fumarate 25 MG TABLET 1 TAB PO 4 TIMES/DAY MENTAL HEALTH (Reported ) Trazodone HCl 50 MG TABLET 75 MG PO QHS INSOMNIA (Reported) Trazodone HCl 50 MG TABLET 0.5 TAB PO BID UNKNOWN (Reported)
--- NOTE | 2016-04-17 18:11 | NUR ---
HOUSE STAFF AT BEDSIDE TO EVAL PT
--- NOTE | 2016-04-17 18:40 | NUR ---
BED ASSIGNMENT 216-02
--- NOTE | 2016-04-17 18:44 | NUR ---
PT REFUSING IV PLACEMENT AFTER MULTIPLE ATTEMPTS TO DISCUSS NEED. SURGICAL PA PAGED
--- NOTE | 2016-04-17 19:14 | NUR ---
REPORT GIVEN TO WALDO GARCIA
--- NOTE | 2016-04-17 19:42 | NUR ---
THIS RN ATTEMPTED TO OBTAIN FLU SWAB, PT YELLED AND GRABBED THIS RN'S ARM AND SHOVED IT AWAY. PT REFUSING FLU SWAB AT THIS TIME
[2016-04-17 20:29] VITALS: BP 160/89
--- NOTE | 2016-04-17 23:04 | History & Physical Pre-Op ---
General Information and HPI Source of Information: patient, old records Exam Limitations: dementia History of Present Illness: Chief complaint "abdominal pain" History of present illness is quite limited because the patient is demented and refusing any physical exam and denies any abdominal pain and doesn't know why she is here. She was brought from the custodial apparently with a recent history of abdominal pain and vomiting and decreased appetite, details unknown. She is nondiabetic nonsmoker. Surgical consult was called because her gallbladder looks abnormal imaging in the ER. I'm evaluating her in the ER. The chart was reviewed the PFSH and ROS were reviewed and are limited as mentioned. Family history is unobtainable and not documented. Allergies/Medications Allergies: Coded Allergies: NO KNOWN ALLERGIES (09/12/15) Home Med list Acetaminophen 500 MG TABLET 2 TAB PO Q12H OA PAIN (Reported) Augmentin (Augmentin 500-125 Tablet) 500 MG-125 MG TABLET 500 MG PO Q12 ANTIBIOTICS Bisacodyl 10 MG SUPP.RECT 1 SUP RC DAILY PRN CONSTIPATION (Reported) Donepezil HCl 10 MG TABLET 1 TAB PO QPM MEMORY (Reported) Escitalopram Oxalate 20 MG TABLET 1 TAB PO DAILY MENTAL HEALTH (Reported) Levothyroxine Sodium 75 MCG TABLET 1 TAB PO DAILY AC THYROID (Reported) Magnesium Hydroxide (Milk Of Magnesia) 400 MG/5 ML ORAL.SUSP 30 ML PO DAILY PRN CONSTIPATION (Reported) Multivitamin (Multi-Day Vitamins) 1 EACH TABLET 1 TAB PO DAILY SUPPLEMENT ( Reported) Omeprazole Magnesium (Prilosec Otc) 20 MG TABLET.DR 1 TAB PO DAILY GI ( Reported) Quetiapine Fumarate 25 MG TABLET 1 TAB PO 4 TIMES/DAY MENTAL HEALTH (Reported ) Trazodone HCl 50 MG TABLET 75 MG PO QHS INSOMNIA (Reported) Trazodone HCl 50 MG TABLET 0.5 TAB PO BID UNKNOWN (Reported) Past History Medical History Any Pertinent Medical History? 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 Alf Facility Smoking Status: Former Smoker ETOH Use: denies use Illicit Drug Use: denies illicit drug use Functional Ability ADLs Needs Assist: dressing, eating, toileting, bathing. Review of Systems Review of Systems: As above, unobtainable Exam & Diagnostic Data Last 24 Hrs of Vital Signs/I&O I reviewed Vital Signs Date Time Temp Pulse Resp B/P Pulse O2 O2 Flow FiO2 Ox Delivery Rate 04/17 2028 98.0 82 20 160/89 93 Room Air 04/17 1846 98.8 92 16 177/85 93 Room Air 04/17 1536 92 16 154/86 93 Room Air 04/17 1410 93 Room Air 04/17 1345 98.7 95 16 160/100 93 Room Air I reviewed Intake & Output 04/17 1600 04/17 0800 04/17 0000 Intake Total 1000 Output Total 150 Balance 850 Intake, IV 1000 Output, 150 Emesis Patient 180 lb Weight Physical Exam: Constitutional: pleasant, no acute distress, conversant Eyes: sclera anicteric ENMT: ears and nose atraumatic, moist mucous membranes, good dentition, no lip lesions Neck: Supple, trachea is midline, no cervical or supraclavicular adenopathy and no palpable thyromegaly Cardiovascular: S1, S2, no murmurs, no peripheral edema Respiratory: clear to auscultation with normal respiratory effort and no intercostal retractions GI: abdomen soft, nontender, nondistended, no palpable hepatosplenomegaly, there is some palpable periumbilical fullness without overlying erythema or tenderness Extremities / lymphatics: symmetrically warm, free range of motion no peripheral edema, no cervical, supraclavicular, axillary, or inguinal adenopathy Musculoskeletal: Did not evaluate gait and station, no digital cyanosis, good muscle strength and tone no atrophy, motor grossly 5 out of 5 throughout Skin: no jaundice, no rashes warm, nondiaphoretic, no areas of erythema or induration Psychiatric: mood and affect are appropriate and alert and oriented to person place and time Last 24 Hrs of Labs/Ramon: I reviewed Laboratory Tests 04/17/16 1702: Lactic Acid Cancelled 04/17/16 1402: Lactic Acid 1.1 04/17/16 1402: Anion Gap 14, Estimated GFR 33 L, BUN/Creatinine Ratio 21.3, Glucose 133 H, Calcium 9.0, Total Bilirubin 0.9, AST 20, ALT 28, Alkaline Phosphatase 111, Total Protein 7.2, Albumin 3.4 L, Globulin 3.8, Albumin/Globulin Ratio 0.9 L, Amylase < 30 L, Lipase 37, CBC w Diff MAN DIFF ORDERED, RBC 4.09 L, MCV 89.5, MCH 29.1, RDW 15.9 H, MPV 8.1, Gran % 84.9 H, Lymphocytes % 10.0 L, Monocytes % 4.8, Eosinophils % 0, Basophils % 0.3, Absolute Granulocytes 16.5 H, Absolute Lymphocytes 1.9, Absolute Monocytes 0.9 H, Absolute Eosinophils 0, Absolute Basophils 0.1, Platelet Estimate ADEQUATE, Anisocytosis 1+, PUBS MCHC 32.5 L 04/17/16 1400: PT 11.9, INR 1.13, APTT 38 H Microbiology 04/17 1624 BLOOD: Blood Culture - RECD 04/17 1614 BLOOD: Blood Culture - RECD Diagnostic Data EKG Results Normal sinus rhythm, regular, right bundle branch block no ST-T wave changes CXR Results Patchy retrocardiac left lower lobe opacity with small left pleural effusion with slight worsening. Other Results Abdominal pelvis CT: 1. Cholelithiasis. Edema around the gallbladder. Findings suggesting acute cholecystitis. Dilated proximal CBD without calcified stone in the bile ducts. 2. Ventral wall hernia containing nonobstructed loop of transverse colon. 3. Diverticulosis of the sigmoid without diverticulitis. No bowel obstruction. No acute change of the bowel. 4. 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 Assessment/Plan Assessment/Plan: Studies: I reviewed the CT scan from today on PACS myself and shows a dilated gallbladder with some stranding around it, and also shows a midline ventral hernia 3 cm defect with bowel in it but it's not obviously obstructed. To be completed discussed with her daughter, patient is demented but adamantly refuses any surgery and denies any abdominal pain, though its limited because of mental status I must admit on exam she is soft and nontender but there is also the concern of the possibility of acute cholecystitis especially based on imaging so after discussion we will try to manage this medically, along with antibiotics but she may need intervention emergently, the daughter agrees. We' ll need to monitor this ventral hernia which presently is apparently asymptomatic. As Ranked By This Provider Problem List: 1. Cholecystitis 2. Dementia 3. Ventral hernia
--- NOTE | 2016-04-17 23:44 | NUR ---
ENTERED ROOM AND IV LYING ON PT'S BLANKETS, OUT OF HER ARM, "I DIDNT PULL IT OUT!" PT VERY AGITATED, "WHY ARE YOU HERE NOW?", GAVE PT HS MEDS AT THIS TIME, CRUSHED AND PUT IN SMALL AMT OF WATER, PT TOLERATED WELL. EDUCATED PT THAT ANOTHER IV WILL NEED TO BE PLACED FOR IVF AND ABX, PT REFUSING " YOU ARE NOT DOING THAT TO ME, IM NOT SICK, I DONT NEED ANYTHING" CALLED IN ANOTHER NURSE, SALMA JORDAN FOR 117 AND SELAM, FERRYBOAT OPERATOR CABLE. PUBLIC RELATIONS ON FLOOR AT THIS TIME, SPOKE TO PUBLIC RELATIONS AND RESIDENT WHO SUGGESTED TO TRY TO PLACE BILATERAL SOFT WRIST RESTRAINTS AND PLACE IV, IF NEEDED FOR IM ZYPREXA CALL AGAIN IN 45 MINS SINCE PT JUST RECIEVED PO SEROQUEL AND TRAZADONE. WITH ASSIST OF THIS NURSE, SALMA NURSE AND SELAM, ABLE TO CALM PATIENT AND PLACE IV TO LFA. PT REMAINS CALM AT THIS TIME. WILL REPORT OFF TO SALMA JORDAN
[2016-04-17 23:50] VITALS: BP 150/87
--- NOTE | 2016-04-17 23:55 | NUR ---
LATE ENTRY PONO AT BEDSIDE, PT DNR ACCORDING TO SHEET SENT WITH PT FROM SNF HOWEVER PT IS CONFUSED AND PONO UNABLE TO GET AHOLD OF SISTER, FOR THIS TIME PT IS TECHNICALLY FULL CODE ACCORDING TO PONO.
--- NOTE | 2016-04-17 23:58 | NUR ---
PT'S BILATERAL SOFT WRISTS DC'ED AT THIS TIME PT CALM AND COOPERATIVE
--- NOTE | 2016-04-18 06:00 | NUR ---
PT REFUSED HEPARIN & SYNTHROID. ADVISED DAIRY EQUIPMENT REPAIRER #[phone] WHILE SHE WAS UP ON THE FLOOR.
--- NOTE | 2016-04-18 07:06 | NUR ---
PT REFUSED ALL AM BLOODWORK AND AM MEDS. DAY SHIFT RN MADE AWARE DURING PT BEDSIDE REPORT.
--- NOTE | 2016-04-18 07:30 | PN- Medicine Consult ---
LAURA AVERY 04/18/16 0729: Assessment/Plan Assessment/Plan Assessment: This is an 85 years old lady with a advanced dementia, hypothyroidism who is a resident of shelter facility and presented on April 17 with nausea and vomiting for 3 days. There was no any history of fever or chills and the patient denies any abdominal pain. At the shelter facility the patient was refusing treatment. On arrival in the ER the patient CT abdomen showed features suggestive of cholecystitis. She also has right sided retrocardiac opacity highly suggestive of aspiration pneumonia and leukocytosis. Plan: cholecystitis Patient has imaging evidence of cholecystitis. Presenting with nausea and vomiting. Currently is being covered medically with Unasyn but this patient is under surgical team and they're considering possibility for cholecystectomy. From medical standpoint patient has low risk for cardiovascular event and can progress with surgery. If the patient is not going for surgery we can do swallow evaluation and start the patient on oral feeds pending surgery decision. Aspiration pneumonia: The patient has leukocytosis with retrocardiac opacity suggestive of pneumonia. The patient has been started on Unasyn 3000 mg every 6 , continue to monitor for signs of infection, overnight the highest temperature is 99.4m, repeat chest x-ray to assess progression of the opacities Apr 19, the patient refused blood work and so we cannot assess leukocytosis. Continue to encourage to participate in care Advanced dementia: Patient has risk of developing delirium due to her advanced dementia and now presenting with acute sickness. The patient is on trazodone 50 mg twice a day and trazodone 75 mg at bedtime, quetiapine fumarate 25 mg 4 times a day, which has been continued. Continue with frequent reorientation. Hypothyroidism: Continue with levothyroxine 75 g Depression: Continue with escitalopram 20 mg CODE STATUS: This patient had a DO NOT RESUSCITATE and DO NOT INTUBATE instruction from shelter facility. I spoke with the nurse in charge at [facility] who confirmed the CODE STATUS. CODE STATUS needs to be DNI DNR and can be changed accordingly during the procedure with clearance from the sister who is care provider and telephone number included on the initial consult note. Problem List: 1. Aspiration pneumonia 2. Leukocytosis 3. Cholecystitis 4. Chronic renal disease 5. Hypothyroidism Subjective Subjective: Reviewed the patient lying comfortably on the bed she has no respiratory distress. Patient is breathing and saturating well on room air with D5 half normal saline running at 100 mL/h. Spoke with the nurse by bedside they report that the patient slept well no any evidence of delirium overnight. She has been refusing medications and also refused blood draw this morning. Patient is insisting that is well and would like to go home. She has been raising multiple concerns of drinking water while the patient is nothing by mouth. It will be advantageous if the patient is not having a procedure soon to be given oral feeds to avoid agitation. Review of Systems Constitutional: Denies: chills, fever. EENTM: Denies: no symptoms. Cardiovascular: Denies: chest pain, palpitations. Respiratory: Denies: cough, short of breath. Gastrointestinal: Denies: abdominal pain, nausea, vomiting. Genitourinary: Denies: no symptoms. Comments: All other systems reviewed and are negative Objective Last 24 Hrs of Vital Signs/I&O Vital Signs Date Time Temp Pulse Resp B/P Pulse O2 O2 Flow FiO2 Ox Delivery Rate 04/18 0753 99.4 90 20 142/80 90 Room Air 04/17 2350 97.9 85 20 150/87 92 Room Air 04/17 2029 98.0 82 20 160/89 93 Room Air 04/17 1846 98.8 92 16 177/85 93 Room Air 04/17 1536 92 16 154/86 93 Room Air 04/17 1410 93 Room Air 04/17 1345 98.7 95 16 160/100 93 Room Air Intake & Output 04/18 1600 04/18 0800 04/18 0000 Intake Total 700 50 Output Total Balance 700 50 Intake, IV 700 Intake, Oral 0 50 Patient 140 lb Weight Physical Exam General Appearance: no apparent distress, alert, awake, not oriented to time place Very plesant Head: atraumatic, normal appearance Ears, Nose, Throat: wet mucous membranes Neck: normal inspection Cardiovascular: regular rate/rhythm Respiratory: chest non-tender, no respiratory distress, bronchial breath sounds bilaterally Abdomen: normal bowel sounds, soft, non-tender Back: normal inspection Extremities: normal inspection, normal capillary refill Neurologic/Psychiatric: awake, alert Current Medications: Current Medications Sig/Alonzo Start time Last Medication Dose Route Stop Time Status Admin Acetaminophen 1,000 MG Q6P PRN 04/17 1730 AC N/A 1 UNIT IV Ampicillin Sodium/ 3,000 MG Q12 04/17 2200 AC 04/17 Sulbactam Sodium IV 2319 Sodium Chloride 100 ML Ampicillin Sodium/ 0 .STK-MED ONE 04/17 1627 DC Sulbactam Sodium .ROUTE Ampicillin Sodium/ 3,000 MG ONCE ONE 04/17 1600 DC 04/17 Sulbactam Sodium IV 04/17 1629 1637 Sodium Chloride 100 ML Dextrose/Sodium 1,000 ML Q10H 04/17 1730 AC 04/17 Chloride IV 2106 Escitalopram Oxalate 20 MG DAILY 04/18 1000 AC PO Heparin Sodium 5,000 UNIT Q8 04/17 2200 AC (Porcine) SC Levothyroxine Sodium 0.075 MG DAILY AC 04/18 0700 AC 04/18 PO 0553 Ondansetron HCl 4 MG Q6P PRN 04/17 1730 AC IV Ondansetron HCl 0 .STK-MED ONE 04/17 1401 DC .ROUTE Ondansetron HCl 4 MG ONCE ONE 04/17 1400 DC 04/17 IV 04/17 1401 1402 Pantoprazole Sodium 40 MG DAILY 04/18 1000 AC IV Quetiapine Fumarate 25 MG FOUR TIMES A DAY 04/17 1800 AC 04/17 PO 2307 Sodium Chloride 1,000 ML ONCE ONE 04/17 2015 DC 04/17 IV 04/18 0934 2113 Sodium Chloride 1,000 ML BOLUS ONE 04/17 1400 DC 04/17 IV 04/17 1559 1412 Trazodone HCl 25 MG BID 04/17 2200 AC 04/17 PO 2307 Trazodone HCl 50 MG AT BEDTIME NEED.. 04/17 1730 AC PO Results Last 24 Hrs Lab/Ramon Results: Laboratory Tests 04/17/16 1702: Lactic Acid Cancelled 04/17/16 1402: Lactic Acid 1.1 04/17/16 1402: Anion Gap 14, Estimated GFR 33 L, BUN/Creatinine Ratio 21.3, Glucose 133 H, Calcium 9.0, Total Bilirubin 0.9, AST 20, ALT 28, Alkaline Phosphatase 111, Total Protein 7.2, Albumin 3.4 L, Globulin 3.8, Albumin/Globulin Ratio 0.9 L, Amylase < 30 L, Lipase 37, CBC w Diff MAN DIFF ORDERED, RBC 4.09 L, MCV 89.5, MCH 29.1, RDW 15.9 H, MPV 8.1, Gran % 84.9 H, Lymphocytes % 10.0 L, Monocytes % 4.8, Eosinophils % 0, Basophils % 0.3, Absolute Granulocytes 16.5 H, Absolute Lymphocytes 1.9, Absolute Monocytes 0.9 H, Absolute Eosinophils 0, Absolute Basophils 0.1, Platelet Estimate ADEQUATE, Anisocytosis 1+, PUBS MCHC 32.5 L 04/17/16 1400: PT 11.9, INR 1.13, APTT 38 H Microbiology 04/17 1625 BLOOD: Blood Culture - RECD 04/17 1615 BLOOD: Blood Culture - RECDARION COVARRUBIAS MD 04/18/16 1626: Attending MD Review Statement Attending Sign Off Attending Cosign Statement: I have: examined this patient, reviewed aval EMR data, discussd w/resident/PA/ 2 YEAR OL[employer] PRESCHOOL TEACHER, agreed w/resident/PA/2 YEAR OLDS PRESCHOOL TEACHER, amended to note. Other Findings: The patient has been seen and discussed with resident. As per surgery, patient is reluctant to undergo surgery at present. Remains afebrile on Unasyn. Will follow-up WBC tomorrow. Continue Abx.
[2016-04-18 07:53] VITALS: BP 142/80
--- NOTE | 2016-04-18 11:59 | PN- General Surgery ---
See Addendum Subjective Subjective: 85-year-old female admitted with leukocytosis, questionable cholecystitis and aspiration pneumonia. Patient has no complaints, no nausea no vomiting no pain has not taking any pain medication, has no fever. She's being followed by medicine and is on Unasyn IV Objective Vital Signs and I&Os Vital Signs Date Time Temp Pulse Resp B/P Pulse O2 O2 Flow FiO2 Ox Delivery Rate 04/18 1015 Room Air 04/18 0753 99.4 90 20 142/80 90 Room Air 04/17 2350 97.9 85 20 150/87 92 Room Air 04/17 2029 98.0 82 20 160/89 93 Room Air 04/17 1846 98.8 92 16 177/85 93 Room Air 04/17 1536 92 16 154/86 93 Room Air 04/17 1410 93 Room Air 04/17 1345 98.7 95 16 160/100 93 Room Air Intake & Output 04/18 1600 04/18 0800 04/18 0000 04/17 1600 04/17 0800 04/17 0000 Intake Total 922 58 7657 Output Total 150 Balance 700 50 850 Intake, IV 700 1000 Intake, Oral 0 50 Output, 150 Emesis Patient 140 lb 180 lb Weight Physical Exam: Well-developed well-nourished no apparent distress. HEENT: Atraumatic, extraocular motion intact Neck: Supple, no lymphadenopathy Back: Nontender Respiratory: No respiratory distress clear to auscultation bilateral. Heart: Regular rate and rhythm no murmur Abdomen: Soft, nontender nondistended, negative Campos sign Extremities: No edema, full range of motion Neuro: Alert and confused Psych: Pleasant, poor memory Skin: Warm and dry, no rash on exposed skin Assessment/Plan Assessment/Plan 85-year-old female, hospital day #2, admitted for possible cholecystitis seen on CT scan with leukocytosis and normal LFTs on hospital day 1. -Patient initially refused blood tests this morning however after discussing the importance with her, she is elected to have blood draw. CBC, basic metabolic panel, magnesium, LFTs, direct bilirubin, PT/INR ordered and patient has agreed to have her blood drawn. -On Unasyn for possible cholangitis versus aspiration pneumonia, continue Unasyn -Appreciate medical input -Will discuss with Armani Rhodes MD current plan however likely patient will not need operative management as she is asymptomatic and refusing surgery. We' ll continue to reevaluate her clinically and follow her labs this afternoon. -Allow ice chips but otherwise nothing by mouth Core Measures/Miscellaneous Venous Thromboembolism VTE Risk Factors: Acute medical illness, Age > 40 VTE Contraindications: No Contraindications VTE [facility] V[facility] Diagnosis: No VTE Type: NONE VTE Confirmed by (Test): NONE Beta Jimi Is Beta Jimi a Home Med? No Antibiotics Is Patient on Antibiotics? Yes If Yes: infection
--- NOTE | 2016-04-18 16:30 | NUR ---
NSG NOTE: THIS RN WENT IN TO ROOM TO ADMINISTER MEDICATIONS TO PATIENT; PATIENT PREVIOUSLY REFUSED 1400 MEDICATIONS INCLUDING SEROQUEL; PATIENT VERY AGITATED STATED "GET THE HELL OUT OF MY ROOM, LEAVE ME ALONE"; PATIENT WAS EVENTUALLY CALMED DOWN BY THIS RN, ANOTHER RN AND STUDENT NURSE; PATIENT FOUND TO BE SOAKED IN URINE AND PATIENT USUALLY CALLS FOR BATHROOM ASSIST; BUILDING RIGGER SELAM RN AWARE OF SITUATION AND WILL CONT TO MONITOR
[2016-04-18 23:58] VITALS: BP 140/80
--- NOTE | 2016-04-19 00:02 | NUR ---
NURSING NOTE: PT WITHOUT IV ACCESS AT START OF SHIFT. THIS RN AND SLURRY CONTROL OPERATOR HELPER SELAM ATTEMPTED TO PLACE NEW IV SITE. PT SCREAMING "GET THE HELL OUT OF HERE, LEAVE ME ALONE, LEAVE ME ALONE." PT BECOMING INCREASINGLY AGITATED AND COMBATIVE. PT ALSO REFUSED 2200 MEDICATIONS. SURGICAL PA JAVIER CALLED AND NOTIFIED OF PT'S REFUSAL OF NEW IV SITE, FLUIDS AND MEDICATIONS. WILL REPORT TO DAY SHIFT RN IN MORNING. WILL MONITOR.
--- NOTE | 2016-04-19 05:34 | NUR ---
NURSING NOTE: ATTEMPTED TO ADMINISTER PT MORNING MEDICATIONS WHEN PT REFUSED AND BECAME INCREASINGLY AGITATED YELLING "GET OUT OF HERE AND LEAVE ME ALONE." SURGICAL PA JAVIER MADE AWARE. WILL MONITOR
[2016-04-19 07:44] LABS: ABSOLUTE BASOPHIL COUNT 0 /CUMM (0.0-0.2); ABSOLUTE EOSINOPHIL COUNT 0 /CUMM (0.0-0.7); ABSOLUTE GRANULOCYTE CT 10.5 /CUMM (1.4-6.5); ABSOLUTE LYMPH COUNT 1.5 /CUMM (1.2-3.4); ABSOLUTE MONOCYTE COUNT 0.7 /CUMM (0.10-0.60); BASOPHIL % 0.2 % (0.0-2.0); EOSINOPHIL % 0.1 % (0-5); GRANULOCYTE % 82.6 % (42.2-75.2); HEMATOCRIT 32.6 % (37-47); MEAN CORPUSCULAR HGB 29.7 PG (27.0-31.0); MEAN CORPUSCULAR HGB CONC 33.1 G/DL (33.0-37.0); MEAN CORPUSCULAR VOLUME 89.7 FL (81.0-99.0); MEAN PLATELET VOLUME 8.4 FL (7.4-10.4); PLATELET COUNT 234 /CUMM (130-400); RBC DISTRIBUTION WIDTH 15.3 % (11.5-14.5); RED BLOOD CELL CT 3.63 /CUMM (4.20-5.40); WHITE BLOOD CELL COUNT 12.8 /CUMM (4.8-10.8)
--- NOTE | 2016-04-19 07:44 | PN- Student ---
See Addendum HANK AG 04/19/16 0727: Subjective Subjective: Laci denies any concerns or problems overnight. She reports no complaints. She denies chest pain, shortness of breath, headache, abdominal pain, nausea, vomiting, fever, chills, or leg pain. Objective Objective: Vitals: BP: 140/80 Pulse: 98 Resp 20 SpO2: 90 Temp: 99.2F Physical exam: General: Resting, well appearing, in no acute disress. alert. Head: Normocephalic, atraumatic Eyes: PERRL, EOMI Mouth: pink moist mucous membranes Lungs: clear to auscultation bilaterally. ? faint rhonchi right lower lobe. Heart: regular, no murmurs rubs or gallops. Abdomen: Non-distended non-tender, no guarding or rebound tenderness. Soft reducible mass about 5 cm x 4 cm midline superior to umbilicus consistent with ventral hernia. Extremities: Full range of motion, non-tender calf and popiteal bilaterally, no edema, 2+ pulses. 3 cm ecchymosis on medial aspect of left ankle. Results Results: Laboratory Tests 04/19/16 0630: Sodium Pending, Potassium Pending, Chloride Pending, Carbon Dioxide Pending, Anion Gap Pending, BUN Pending, Creatinine Pending, BUN/Creatinine Ratio Pending , Total Bilirubin Pending, Direct Bilirubin Pending, AST Pending, ALT Pending, Alkaline Phosphatase Pending, Total Protein Pending, Albumin Pending, CBC w Diff Pending, WBC Pending, RBC Pending, Hgb Pending, Hct Pending, MCV Pending, MCH Pending, RDW Pending, Plt Count Pending, MPV Pending, PUBS MCHC Pending 04/18/16 1152: Anion Gap 11, Estimated GFR 33 L, BUN/Creatinine Ratio 19.3, Magnesium 1.7, Total Bilirubin 0.7, Direct Bilirubin 0.5 H, AST 16, ALT 24, Alkaline Phosphatase 103, Total Protein 6.5, Albumin 2.9 L, PT 12.0, INR 1.14 04/18/16 0600: Magnesium Cancelled, CBC w Diff Cancelled, WBC Cancelled, RBC Cancelled, Hgb Cancelled, Hct Cancelled, MCV Cancelled, MCH Cancelled, RDW Cancelled, Plt Count Cancelled, MPV Cancelled, PUBS MCHC Cancelled 04/17/16 1702: Lactic Acid Cancelled 04/17/16 1402: Lactic Acid 1.1 04/17/16 1402: Anion Gap 14, Estimated GFR 33 L, BUN/Creatinine Ratio 21.3, Glucose 133 H, Calcium 9.0, Total Bilirubin 0.9, AST 20, ALT 28, Alkaline Phosphatase 111, Total Protein 7.2, Albumin 3.4 L, Globulin 3.8, Albumin/Globulin Ratio 0.9 L, Amylase < 30 L, Lipase 37, CBC w Diff MAN DIFF ORDERED, RBC 4.09 L, MCV 89.5, MCH 29.1, RDW 15.9 H, MPV 8.1, Gran % 84.9 H, Lymphocytes % 10.0 L, Monocytes % 4.8, Eosinophils % 0, Basophils % 0.3, Absolute Granulocytes 16.5 H, Absolute Lymphocytes 1.9, Absolute Monocytes 0.9 H, Absolute Eosinophils 0, Absolute Basophils 0.1, Platelet Estimate ADEQUATE, Anisocytosis 1+, PUBS MCHC 32.5 L 04/17/16 1400: PT 11.9, INR 1.13, APTT 38 H Microbiology 04/17 193 NASOPHARYN: Influenza Virus A & B Rapid Smear - CAN Cancelled: SPECIMEN NOT RECEIVED IN LABORATORY 04/17 1625 BLOOD: Blood Culture - RES 04/17 1615 BLOOD: Blood Culture - RES Assessment/Plan Assessment: Pt is a 85 year old female with a history of dementia, renal disease, hpothyroidism and cholecystitis who is day 2 of hospital admission for abdominal pain with leukocytosis. Plan: -continue npo -encurage incentive spirometer -am labs pending -continue unasyn as prescribed -establish IV access will discuss above with PA surgical team. Hank ROBLEDO-S2 JESUS CLARKE 04/19/16 0746: Assessment/Plan Assessment: See note below. Resident Review Statement Resident Statement: examined this patient, agree with PA-S note. Other Findings: Patient HD #2 with epigastric abdominal pain and tenderness concerning for cholecystitis based on CT abdomen/pelvis. Patient with periods of confusion/ agitation, refusing labwork, as well as wishing to not be operated on. Awaiting labwork this morning. AVSS. Plan: F/U am labwork. May need RUQ ultrasound to further evaluate extent of gallbladder disease. IV team to place IV this morning as patient amenable to placement at this point. Will discuss plan with Dr. Rhodes/covering attending.
[2016-04-19 08:34] VITALS: BP 142/80
--- NOTE | 2016-04-19 09:24 | PN- Medicine Consult ---
LAURA AVERY 04/19/16 0924: Assessment/Plan Assessment/Plan Assessment: This is an 85 years old lady with a advanced dementia, hypothyroidism who is a resident of alf facility and presented on April 17 with nausea and vomiting for 3 days. There was no any history of fever or chills and the patient denies any abdominal pain. At the alf facility the patient was refusing treatment. On arrival in the ER the patient CT abdomen showed features suggestive of cholecystitis. She also has right sided retrocardiac opacity highly suggestive of aspiration pneumonia and leukocytosis. Repeated CBC is showing downward trend of leukocytosis patient has remained afebrile with MAXIMUM TEMPERATURE of 99.3. Plan: cholecystitis Patient has imaging evidence of cholecystitis. Presenting with nausea and vomiting. Currently is being covered medically with Unasyn but this patient is under surgical team and they're considering possibility for cholecystectomy. From medical standpoint patient has low risk for cardiovascular event and can progress with surgery. If the patient is not going for surgery we can do swallow evaluation and start the patient on oral feeds pending surgery decision. Patient is very agitated, wants to eat. And at the moment the patient is resistant to care. We highly recommend if this patient is not going to OR to have a swallow evaluation and proper meals started. Aspiration pneumonia: The patient has leukocytosis with retrocardiac opacity suggestive of pneumonia. The patient has been started on Unasyn 3000 mg every 12, continue to monitor for signs of infection, overnight the highest temperature is 99.3, repeat chest x-ray to assess progression of the opacities Apr 19. Repeated blood work shows improvement in leukocytosis and normal chemistries. Advanced dementia: Patient has risk of developing delirium due to her advanced dementia and now presenting with acute sickness. The patient is on trazodone 50 mg twice a day and trazodone 75 mg at bedtime, quetiapine fumarate 25 mg 4 times a day, which has been continued. Continue with frequent reorientation. Hypothyroidism: Continue with levothyroxine 75 g Depression: Continue with escitalopram 20 mg CODE STATUS: This patient had a DO NOT RESUSCITATE and DO NOT INTUBATE instruction from alf facility. I spoke with the nurse in charge at [facility] who confirmed the CODE STATUS. CODE STATUS needs to be DNI DNR and can be changed accordingly during the procedure with clearance from the sister who is care provider and telephone number included on the initial consult note. This patient advanced dementia and not able to make medical decisions for SNF the POA is her sister Kay Wilder [phone]. Please call the sister regarding any medical/surgical decisions going forward. Problem List: 1. Aspiration pneumonia 2. Hypothyroidism 3. Leukocytosis 4. Dementia Subjective Subjective: Reviewed the patient lying comfortably on the bed has not respiratory distress. After exchange of plesantries the patient did not want anymore interaction. She repeated several times that she is feeling well and wants to go home. She reports to be very hungry and would like to start eating meals. She has been resistant to care refusing medication and physical examination. Review of Systems Constitutional: Denies: chills, fever. Cardiovascular: Denies: chest pain, palpitations. Respiratory: Denies: cough, short of breath. Gastrointestinal: Denies: abdominal pain, nausea, vomiting. Comments: Patient refused to respond to other review of system questions Objective Last 24 Hrs of Vital Signs/I&O Vital Signs Date Time Temp Pulse Resp B/P Pulse O2 O2 Flow FiO2 Ox Delivery Rate 04/19 0834 98.8 80 20 142/80 90 Room Air 04/18 2358 99.2 98 20 140/80 90 Room Air Intake & Output 04/19 1600 04/19 0800 04/19 0000 Intake Total 0 Output Total Balance 0 Intake, IV 0 Intake, Oral 0 Physical Exam General Appearance: no apparent distress, alert, awake Other Physical Findings: Patient refused physical examination Current Medications: Current Medications Sig/Laonzo Start time Last Medication Dose Route Stop Time Status Admin Acetaminophen 1,000 MG Q6P PRN 04/17 1730 AC N/A 1 UNIT IV Ampicillin Sodium/ 3,000 MG Q12 04/17 2200 AC 04/18 Sulbactam Sodium IV 1034 Sodium Chloride 100 ML Dextrose/Sodium 1,000 ML Q10H 04/17 1730 AC 04/19 Chloride IV 0819 Escitalopram Oxalate 20 MG DAILY 04/18 1000 AC 04/18 PO 1034 Heparin Sodium 5,000 UNIT Q8 04/17 2200 AC (Porcine) SC Levothyroxine Sodium 0.075 MG DAILY AC 04/18 0700 AC 04/18 PO 0553 Ondansetron HCl 4 MG Q6P PRN 04/17 1730 AC IV Pantoprazole Sodium 40 MG DAILY 04/18 1000 AC IV Quetiapine Fumarate 25 MG FOUR TIMES A DAY 04/17 1800 AC 04/18 PO 1631 Trazodone HCl 25 MG BID 04/17 2200 AC 04/18 PO 1035 Trazodone HCl 50 MG AT BEDTIME NEED.. 04/17 1730 AC PO Results Last 24 Hrs Lab/Ramon Results: Laboratory Tests 04/19/16 0630: Anion Gap 9, Estimated GFR 31 L, BUN/Creatinine Ratio 18.8, Total Bilirubin 0.7 , Direct Bilirubin 0.5 H, AST 15, ALT 21, Alkaline Phosphatase 98, Total Protein 5.9 L, Albumin 2.6 L, CBC w Diff NO MAN DIFF REQ, RBC 3.63 L, MCV 89.7, MCH 29.7, RDW 15.3 H, MPV 8.4, Gran % 82.6 H, Lymphocytes % 11.7 L, Monocytes % 5.4, Eosinophils % 0.1, Basophils % 0.2, Absolute Granulocytes 10.5 H, Absolute Lymphocytes 1.5, Absolute Monocytes 0.7 H, Absolute Eosinophils 0, Absolute Basophils 0, PUBS MCHC 33.1 DARION PEREZ MD 04/19/16 1706: Attending MD Review Statement Attending Sign Off Attending Cosign Statement: I have: examined this patient, reviewed [facility] EMR data, personally reviewd images, discussd w/resident/PA/MAINTENANCE PLUMBER, amended to note. Other Findings: The patient was seen and reviewed with resident. The patient's sister is POA. Abdominal exam is benign at present (she did let me do exam). As per surgery, no surgery intended. Swallow eval and feet as per surgery.
[2016-04-19 16:42] VITALS: BP 140/80
--- NOTE | 2016-04-19 19:39 | NUR ---
AT 1600 PATIENT VERY AGITATED AND AGGRESSIVE. REFUSED IV ACCESS. MD AWARE. PATIENT REFUSING MEDICATION AND STATES "SHE DOES NOT WANT TO BE TOUCHED". BED ALARM ON. EMOTIONAL SUPPORT PROVIDED.
--- NOTE | 2016-04-19 20:00 | NUR ---
NURSING NOTE: PT REFUSED TO PUT ON A GOWN. PT COVERED UP WITH BLANKETS AND PTS CURTAIN PULLED SHUT. PT STATES "LEAVE ME ALONE, I DON'T WANT TO BE TOUCHED". EVENING CHARGEBACK ANALYST MADE AWARE. BED ALARM IN PLACE. EMOTIONAL SUPPORT GIVEN. WILL CONTINUE TO MONITOR.
--- NOTE | 2016-04-19 23:30 | NUR ---
NURSING NOTE: PT REFUSED HER NIGHTTIME MEDS, VITALS, AND CARE. MADE AWARE. PT STATES "PLEASE LEAVE ME ALONE". WILL CONTINUE TO MONITOR.
[2016-04-20 08:42] VITALS: BP 136/80
--- NOTE | 2016-04-20 09:26 | PN- General Surgery ---
See Addendum Subjective Subjective: Pleasant in bed this morning. No complaints of abdominal pain. No N/V, F/C, CP /SOB. Objective Vital Signs and I&Os Vital Signs Date Time Temp Pulse Resp B/P Pulse O2 O2 Flow FiO2 Ox Delivery Rate 04/20 0842 98.4 80 20 136/80 94 Room Air 04/19 1642 97.1 80 20 140/80 92 Room Air Intake & Output 04/20 1600 04/20 0800 04/20 0000 04/19 1600 04/19 0800 04/19 0000 Intake Total 300 0 Output Total Balance 300 0 Intake, IV 0 Intake, Oral 300 0 Number 1 Bowel Movements Physical Exam: Gen: AAOx1 in NAD Cor: S1+S2+ Lungs: CTA deirdre Abd: soft, NT, ND, +BS x4. Palpable ventral hernia on exam, reducible Ext: no edema or calf tenderness to deirdre lower extremities. Results Last 48 Hours of Labs: Laboratory Tests 04/20 04/19 04/18 0854 0630 1152 Chemistry Sodium (137 - 145 mmol/L) Pending 139 138 Potassium (3.5 - 5.1 mmol/L) Pending 4.4 4.2 Chloride (98 - 107 mmol/L) Pending 107 106 Carbon Dioxide (22 - 30 mmol/L) Pending 22 21 L Anion Gap (5 - 16) Pending 9 11 BUN (7 - 17 mg/dL) Pending 30 H 29 H Creatinine (0.5 - 1.0 mg/dL) Pending 1.6 H 1.5 H Estimated GFR (>60 ml/min) 31 L 33 L BUN/Creatinine Ratio (7 - 25 %) Pending 18.8 19.3 Magnesium (1.6 - 2.3 mg/dL) 1.7 Total Bilirubin (0.2 - 1.3 mg/dL) 0.7 0.7 Direct Bilirubin (< 0.4 mg/dL) 0.5 H 0.5 H AST (14 - 36 U/L) 15 16 ALT (9 - 52 U/L) 21 24 Alkaline Phosphatase (<127 U/L) 98 103 Total Protein (6.3 - 8.2 g/dL) 5.9 L 6.5 Albumin (3.5 - 5.0 g/dL) 2.6 L 2.9 L Coagulation PT (9.4 - 12.5 SEC) 12.0 INR (0.90 - 1.19) 1.14 Hematology CBC w Diff Pending NO MAN DIFF REQ WBC (4.8 - 10.8 /CUMM) Pending 12.8 H RBC (4.20 - 5.40 /CUMM) Pending 3.63 L Hgb (12.0 - 16.0 G/DL) Pending 10.8 L Hct (37 - 47 %) Pending 32.6 L MCV (81.0 - 99.0 FL) Pending 89.7 MCH (27.0 - 31.0 PG) Pending 29.7 RDW (11.5 - 14.5 %) Pending 15.3 H Plt Count (130 - 400 /CUMM) Pending 234 MPV (7.4 - 10.4 FL) Pending 8.4 Gran % (42.2 - 75.2 %) 82.6 H Lymphocytes % (20.5 - 51.1 %) 11.7 L Monocytes % (1.7 - 9.3 %) 5.4 Eosinophils % (0 - 5 %) 0.1 Basophils % (0.0 - 2.0 %) 0.2 Absolute Granulocytes (1.4 - 6.5 /CUMM) 10.5 H Absolute Lymphocytes (1.2 - 3.4 /CUMM) 1.5 Absolute Monocytes (0.10 - 0.60 /CUMM) 0.7 H Absolute Eosinophils (0.0 - 0.7 /CUMM) 0 Absolute Basophils (0.0 - 0.2 /CUMM) 0 PUBS MCHC (33.0 - 37.0 G/DL) Pending 33.1 Assessment/Plan Assessment/Plan A: HD #3 with subjective abdominal pain of unclear etiology as well as consolidation on CXR presumably pneumonia; AVSS. Remains on Augmentin (changed from Unasyn overnight due to lack of IV as patient pulled it out). Plan: Continue Augmentin as ordered. Regular diet. Likely d/c back to SNF today. Will discuss with condenser tester attending. Core Measures/Miscellaneous Venous Thromboembolism VTE Risk Factors: Acute medical illness, Age > 40 VTE Contraindications: No Contraindications VTE Prophylaxis Ordered Inpt Mech & Pharm VTE Diagnosis: No VTE Type: NONE VTE Confirmed by (Test): NONE Beta Jimi Is Beta Jimi a Home Med? No Antibiotics Is Patient on Antibiotics? Yes If Yes: infection
[2016-04-20 09:49] LABS: ABSOLUTE BASOPHIL COUNT 0 /CUMM (0.0-0.2); ABSOLUTE EOSINOPHIL COUNT 0 /CUMM (0.0-0.7); ABSOLUTE GRANULOCYTE CT 8.2 /CUMM (1.4-6.5); ABSOLUTE LYMPH COUNT 1.6 /CUMM (1.2-3.4); ABSOLUTE MONOCYTE COUNT 0.8 /CUMM (0.10-0.60); BASOPHIL % 0.2 % (0.0-2.0); EOSINOPHIL % 0.1 % (0-5); GRANULOCYTE % 77.1 % (42.2-75.2); HEMATOCRIT 32.2 % (37-47); MEAN CORPUSCULAR HGB 29.5 PG (27.0-31.0); MEAN CORPUSCULAR VOLUME 89.3 FL (81.0-99.0); MEAN PLATELET VOLUME 8.3 FL (7.4-10.4); PLATELET COUNT 238 /CUMM (130-400); RBC DISTRIBUTION WIDTH 15.1 % (11.5-14.5); RED BLOOD CELL CT 3.61 /CUMM (4.20-5.40); WHITE BLOOD CELL COUNT 10.7 /CUMM (4.8-10.8)
--- NOTE | 2016-04-20 12:43 | Patient Discharge Instructions ---
Discharge Instructions General Discharge Information You were seen/treated for: abdominal pain You had these procedures: none Diet Continue normal diet: Yes Activity Full Activity/No Limits: Yes Acute Coronary Syndrome Inclusion Criteria At DC or during hospital stay patient has or had the following: ACS DIAGNOSIS No Discharge Core Measures Meds if any: Prescribed or Continued at Discharge Meds if any: NOT Prescribed or Continued at Discharge Congestive Heart Failure Inclusion Criteria At DC or during hospital stay patient has or had the following: CHF DIAGNOSIS No Discharge Core Measures Meds if any: Prescribed or Continued at Discharge Meds if any: NOT Prescribed or Continued at Discharge Cerebrovascular accident Inclusion Criteria At DC or during hospital stay patient has or had the following: CVA/TIA Diagnosis No Discharge Core Measures Meds if any: Prescribed or Continued at Discharge Meds if any: NOT Prescribed or Continued at Discharge Venous thromboembolism Inclusion Criteria VTE Diagnosis No VTE Type NONE VTE Confirmed by (Test) NONE Discharge Core Measures - Per Current guidelines, there needs to be overlap - treatment for the first 5 days of Warfarin therapy. - If discharged on Warfarin prior to 5 days of - overlap therapy, the patient will need to be - assessed for post discharge needs including - *Post discharge parental anticoagulation - *Warfarin and/or parental anticoagulation education - *Follow up date to check INR post discharge At least 5 days overlap therapy as Inpatient No Meds if any: Prescribed or Continued at Discharge Note: Overlap Therapy is Warfarin and Anticoagulant Meds if any: NOT Prescribed or Continued at Discharge
[2016-04-20] MEDS ORDERED: AUGMENTIN 500-1 EACH PO (12:53)
--- NOTE | 2016-04-20 13:32 | Surgical Discharge Summary ---
Visit Information Visit Dates Admission Date: 04/17/16 Discharge Date: 04/20/16 History of Present Illness Chief Complaint: abdominal pain Medical History Neurological: dementia EENT: cataracts Cardiovascular: hypertension Respiratory: NONE Gastrointestinal: GERD, HERNIA INCONTINENCE Hepatic: NONE Renal: INCONTINENCE Musculoskeletal: osteoarthritis Psychiatric: anxiety Endocrine: hypothyroidism Blood Disorders: NONE Cancer(s): NONE INGOT SUPERVISOR/Reproductive: NONE History of MRSA: No History of VRE: No History of CDIFF: No Isolation History: Standard Surgical History Pertinent Surgical History: hernia repair-ventral, unknown Psychosocial History Where Do You Live? Senior Living Facility Who Do You Live With? Paid Attentent What is Your Primary Language? Persian ETOH Use: denies use Review of Systems: see [facility] Hospital Course Course Attending Physician: NORTH MUELLER,SEAN Montoya Primary Care Physician: KELSI MUELLER,[facility] Course: Mrs. Romero is an 85 year old female resident of [facility]. She was admitted on 04/17/16 with refusal to eat, nausea, vomiting, and complaints of abdominal pain. In the emergency room, a CT abd/pelvis was performed, confirming cholelithiasis and some gallbladder edema. Her WBC was 19k. A CXR confirmed a left lower lobe opacity suspicious for an infiltrate. Her family membere (sister) and the patient refused any sort of surgery on her gallbladder. She was monitored over her hospital stay, receiving IV Unasyn. The patient had moments of delirium (baseline) and pulled her IVs out, also refusing blood draws and attempting to punch medical staff. Throughout her hospital course, she complained once of abdominal pain (04/19/16), but was not nauseated. Her WBC came down with antibiotics and she tolerated clear liquids, ultimately advancing to a regular diet. She was discharged on 04/20/16 back to [facility] with outpatient follow up with Dr. Rhodes should she have further abdominal pain. Allergies: Coded Allergies: NO KNOWN ALLERGIES (09/12/15) Disposition Summary Disposition Principal Diagnosis: abdominal pain Additional Diagnosis: none Discharge Disposition: SNF Discharge Instructions General Discharge Information Code Status: Do Not Resucitate/Intubat Patient's Diet: regular Patient's Activity: as tolerated Follow-Up Instructions/Appts: Dr. Rhodes should she have any abdominal pain Medications at Discharge Discharge Medications: Continue taking these medications: Donepezil HCl (Donepezil HCl) 10 MG TABLET 1 Tablet ORAL Every night Qty = 30 Comments: PER MAY Escitalopram Oxalate (Escitalopram Oxalate) 20 MG TABLET 1 Tablet ORAL DAILY Qty = 14 Comments: PER MAY Levothyroxine Sodium (Levothyroxine Sodium) 75 MCG TABLET 1 Tablet ORAL DAILY BEFORE BREAKFAST Qty = 30 Comments: PER MAY Acetaminophen (Acetaminophen) 500 MG TABLET 2 Tablet ORAL Q12H Comments: PER MAY Multivitamin (Multi-Day Vitamins) 1 EACH TABLET 1 Tablet ORAL DAILY Comments: PER MAY Omeprazole Magnesium (Prilosec Otc) 20 MG TABLET.DR 1 Tablet ORAL DAILY Comments: PER MAY Trazodone HCl (Trazodone HCl) 50 MG TABLET 75 Milligram ORAL TAKE AT BEDTIME Comments: PER MAY Trazodone HCl (Trazodone HCl) 50 MG TABLET 0.5 Tablet ORAL TWICE DAILY Comments: PER MAY Magnesium Hydroxide (Milk Of Magnesia) 400 MG/5 ML ORAL.SUSP 30 Milliliters ORAL DAILY as needed for CONSTIPATION Comments: PER MAY IF NO BM IN 3 DAYS *DO NOT GIVE WITH DIALYSIS/RENAL FAILURE* Bisacodyl (Bisacodyl) 10 MG SUPP.RECT 1 Suppository RECTAL DAILY as needed for CONSTIPATION Comments: PER MAY IF MOM INEFFECTIVE Quetiapine Fumarate (Quetiapine Fumarate) 25 MG TABLET 1 Tablet ORAL 4 TIMES A DAY Qty = 60 Comments: PER MAY Start taking the following new medications: Augmentin (Augmentin 500-125 Tablet) 500 MG-125 MG TABLET 500 Milligram ORAL EVERY 12 HOURS Qty = 14 No Refills
[2016-04-20 15:42] VITALS: BP 136/80
== END 2016-04-20 16:15 | DRG 444 ==
LOC: ENRESERVDT → ENRESERVTM → ERH 13:40 → ERHI 17:27 → 2NB 17:27 → ENPENDDIS 17:27 → 2NB 19:44
PROVIDERS: Physician Assistant; Physician Assistant Surgical; ADMIT Surgery
DX: K81.0 Acute cholecystitis (principal); J69.0 Pneumonitis due to inhalation of food and vomit; F03.90 Unspecified dementia, unspecified severity, without behavioral disturbance, psychotic disturbance, mood disturbance, and anxiety; I12.9 Hypertensive chronic kidney disease with stage 1 through stage 4 chronic kidney disease, or unspecified chronic kidney disease; N18.3 Chronic kidney disease, stage 3 (moderate); I10 Essential (primary) hypertension; K21.9 Gastro-esophageal reflux disease without esophagitis; F32.9 Major depressive disorder, single episode, unspecified; M19.90 Unspecified osteoarthritis, unspecified site
CPT/HCPCS: 2NBSP; 36415; 74176; 82436; 87040; 87804; 87804-59; 93005; 93010; 96374; 96375; J1644; J2405; J3490; J7042

== ENCOUNTER 2016-07-11 10:51 | Emergency (ER) | payer OTHER, MEDICARE ==
[~2016-07-11 10:51] MED LIST changes: +AUGMENTIN 500-1 EACH PO
--- NOTE | 2016-07-11 11:16 | ED AMS/SEIZURE/WEAK/DIZZY ---
History of Present Illness General Chief Complaint: Altered Mental Status Stated Complaint: UNRESPONSIVE Source: patient, family, old records, EMS Exam Limitations: dementia Vital Signs & Intake/Output Vital Signs & Intake/Output Vital Signs Date Time Temp Pulse Resp B/P B/P Pulse O2 O2 Flow FiO2 Mean Ox Delivery Rate 07/11 1729 98.7 68 18 143/68 93 07/11 1517 97.1 78 20 154/72 97 Room Air 07/11 1100 98.2 78 16 106/86 98 Room Air Allergies Coded Allergies: NO KNOWN ALLERGIES (09/12/15) Reconcile Medications Acetaminophen 500 MG TABLET 2 TAB PO Q12H OA PAIN (Reported) Augmentin (Augmentin 500-125 Tablet) 500 MG-125 MG TABLET 500 MG PO Q12 ANTIBIOTICS Bisacodyl 10 MG SUPP.RECT 1 SUP RC DAILY PRN CONSTIPATION (Reported) Donepezil HCl 10 MG TABLET 1 TAB PO QPM MEMORY (Reported) Escitalopram Oxalate 20 MG TABLET 1 TAB PO DAILY MENTAL HEALTH (Reported) Levothyroxine Sodium 75 MCG TABLET 1 TAB PO DAILY AC THYROID (Reported) Magnesium Hydroxide (Milk Of Magnesia) 400 MG/5 ML ORAL.SUSP 30 ML PO DAILY PRN CONSTIPATION (Reported) Multivitamin (Multi-Day Vitamins) 1 EACH TABLET 1 TAB PO DAILY SUPPLEMENT ( Reported) Omeprazole Magnesium (Prilosec Otc) 20 MG TABLET.DR 1 TAB PO DAILY GI ( Reported) Quetiapine Fumarate 25 MG TABLET 1 TAB PO 4 TIMES/DAY MENTAL HEALTH (Reported ) Trazodone HCl 50 MG TABLET 75 MG PO QHS INSOMNIA (Reported) Trazodone HCl 50 MG TABLET 0.5 TAB PO BID UNKNOWN (Reported) Triage Note: PT BIBA FROM [facility] AFTER BEING FOUND UNRESPONSIVE SITTING IN HER CHAIR. PT WAS NOTED TO BE INCONTINENT OF URINE AND STOOL. WHEN PT BECAME AWAKE SHE BECAME COMBATIVE WITH STAFF. PT ARRIVES TO ED UNCOOPERATIVE. RIPPED OFF BP CUFF AND PULSE MONITOR. PT ATTEMPTING TO GRAB AT THIS RN. SIDE RAILS UP, BED IN LOWEST POSITION, CALL PORTER WITHIN REACH. PER EMS PT UNCOOPERATIVE WITH CARE. Triage Nurses Notes Reviewed? yes HPI: Patient is an 85-year-old female brought in by ambulance from shelter facility. Patient was found unresponsive incontinent of urine and stool. When patient regained consciousness she was combative with staff. EMS reports the patient was combative with them through transport. Patient does not recall any unresponsive episode. Has no complaints at this time. Pain is 0 out of 10. Patient denies recent falls, chest pain, dyspnea, bone pain, nausea or vomiting. (MANUELA MOREAU) Past History Travel History Traveled to [place] past 21 day No Medical History Any Pertinent Medical History? 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 No (MANUELA MOREAU) Review of Systems Review of Systems Constitutional: Denies: chills, fever. EENTM: Reports: no symptoms. Respiratory: Denies: cough, short of breath. Cardiovascular: Reports: syncope. Denies: chest pain. GI: Denies: abdominal pain, diarrhea, vomiting. Genitourinary: Reports: no symptoms. Musculoskeletal: Denies: back pain, neck pain. Skin: Reports: no symptoms. Neurological/Psychological: Reports: dementia. Denies: headache, unable to move lower ext, unable to move upper ext. Hematologic/Endocrine: Denies: bruising, bleeding. Immunologic/Allergic: Denies: splenectomy. (MANUELA MOREAU) Physical Exam Physical Exam General Appearance: well developed/nourished, alert, awake Head: atraumatic, normal appearance Eyes: Bilateral: normal appearance, PERRL, EOMI. Ears, Nose, Throat: normal pharynx, normal ENT inspection, hearing grossly normal Neck: normal inspection, supple, full range of motion Respiratory: normal breath sounds, chest non-tender, no respiratory distress, lungs clear Cardiovascular: regular rate/rhythm Gastrointestinal: soft, non-tender Back: normal inspection, normal range of motion Extremities: normal range of motion Neurologic/Psych: awake, alert, disoriented to time Skin: intact, normal color, warm/dry Lymphatic: no anterior cervical rukhsana Core Measures ACS in differential dx? Yes ASA ordered for poss ACS? No-ACS ruled out CVA/TIA Diagnosis: No Severe Sepsis Present: No Septic Shock Present: No (MANUELA MOREAU) Progress Differential Diagnosis: arrythmia, anemia, benign positional vertigo, CVA/stroke , dehydration, encephalitis, electrolyte imbalance, GI bleed, hypoglycemia, hypoxia, intracranial Hem., intracranial mass/tumor, meningitis, migraine MCKEON, pneumonia, postural hypotension, presyncope, post-traumatic vertigo, sepsis, seizure disorder, subarachnoid Hem., UTI/pyelo, vertebrobasilar insuff Initial ED EKG: normal sinus rhythm rbbb, lafb, lvh, no acute changes from previous ekg Prior EKG: unchanged (MANUELA MOREAU) Plan of Care: Orders Procedure Date/time Status Regular Diet 07/12 B Active Add-on Test (ER Only) 07/11 1708 Active CULTURE,URINE 07/11 1635 Active EKG 07/11 1118 Active Telemetry/Inside Sales Executive 07/11 1115 Active URINALYSIS 07/11 1114 Complete TROPONIN LEVEL 07/11 1114 Complete COMPREHENSIVE METABOLIC PANEL 07/11 1114 Complete CBC WITHOUT DIFFERENTIAL 07/11 1114 Complete Laboratory Tests 07/11/16 1635: Urinalysis LIGHT H, Urine Color YEL, Urine Clarity CLDY H, Urine pH 6.0, Ur Specific [place] 1.020, Urine Protein 30 H, Urine Ketones NEG, Urine Nitrite NEG, Urine Bilirubin NEG, Urine Urobilinogen 0.2, Ur Leukocyte Esterase LARGE H , Ur Microscopic SEDIMENT EXAMINED, Urine RBC RARE, Urine WBC 25-50 H, Ur Epithelial Cells MANY H, Urine Bacteria PACKD H, Urine Mucus FEW, Micro UA Comment BUDDING YEAST H, Urine Hemoglobin TRACE-INTACT, Urine Glucose NEG 07/11/16 1136: Anion Gap 10, Estimated GFR 22 L, BUN/Creatinine Ratio 18.6, Glucose 113 H, Calcium 8.4, Total Bilirubin 0.3, AST 18, ALT 25, Alkaline Phosphatase 81, Troponin I 0.02, Total Protein 6.0 L, Albumin 2.7 L, Globulin 3.3, Albumin/ Globulin Ratio 0.8 L, CBC w Diff NO MAN DIFF REQ, RBC 3.57 L, MCV 88.3, MCH 29.4, RDW 16.0 H, MPV 7.9, Gran % 72.6, Lymphocytes % 18.0 L, Monocytes % 6.7, Eosinophils % 2.0, Basophils % 0.7, Absolute Granulocytes 4.1, Absolute Lymphocytes 1.0 L, Absolute Monocytes 0.4, Absolute Eosinophils 0.1, Absolute Basophils 0, PUBS MCHC 33.3 Microbiology 07/11 1635 URINE ROUT: Urine Culture - RECD Results of labs, EKG, urinalysis discussed with the patient and her family. Patient afebrile, nontoxic-appearing. Patient appears stable for discharge back to the shelter facility. Discussed with and seen by Dr. Porter. (MANUELA MOREAU) Departure Departure Disposition: ACUTE REHAB FACILITY Condition: Stable Clinical Impression Primary Impression: Urinary tract infection Qualifiers: Urinary tract infection type: site unspecified Hematuria presence: without hematuria Qualified Code: N39.0 - Urinary tract infection, site not specified Secondary Impressions: Chronic kidney disease, Unresponsive episode Referrals: Yumiko DOLAN MD (PCP/Family) Departure Forms: Customer Survey General Discharge Information (MANUELA MOREAU) Resident Co-Sign Statement Statement: ED Attending supervision documentation- [X] I saw and evaluated the patient. I have also reviewed all the pertinent lab results and diagnostic results. I agree with the findings and the plan of care as documented in the Resident's documentation. [] I have reviewed the ED Record and agree with the Resident's documentation. [] Additions or exceptions (if any) to the Resident's note and plan are summarized below: [] (CHRISTOFER MUELLER,KIM Lebron)
[2016-07-11 12:11] LABS: ABSOLUTE BASOPHIL COUNT 0 /CUMM (0.0-0.2); ABSOLUTE EOSINOPHIL COUNT 0.1 /CUMM (0.0-0.7); ABSOLUTE GRANULOCYTE CT 4.1 /CUMM (1.4-6.5); ABSOLUTE MONOCYTE COUNT 0.4 /CUMM (0.10-0.60); BASOPHIL % 0.7 % (0.0-2.0); GRANULOCYTE % 72.6 % (42.2-75.2); HEMATOCRIT 31.5 % (37-47); MEAN CORPUSCULAR HGB 29.4 PG (27.0-31.0); MEAN CORPUSCULAR HGB CONC 33.3 G/DL (33.0-37.0); MEAN CORPUSCULAR VOLUME 88.3 FL (81.0-99.0); MEAN PLATELET VOLUME 7.9 FL (7.4-10.4); PLATELET COUNT 247 /CUMM (130-400); RED BLOOD CELL CT 3.57 /CUMM (4.20-5.40); WHITE BLOOD CELL COUNT 5.6 /CUMM (4.8-10.8)
[2016-07-11 17:29] VITALS: BP 143/68
== END 2016-07-11 17:55 ==
LOC: ERH 10:51
PROVIDERS: Physician Assistant
DX: N39.0 Urinary tract infection, site not specified (principal); N18.9 Chronic kidney disease, unspecified; R40.20 Unspecified coma; I10 Essential (primary) hypertension; E03.9 Hypothyroidism, unspecified
CPT/HCPCS: 81001; 87086; 93005; 93010